=== PATIENT | male | born 1940 | race Caucasian/White ===

== ENCOUNTER 2016-07-14 07:22 | Day surgery (SDC) | payer MEDICARE, OTHER ==
--- NOTE | 2016-07-13 12:05 | PCM.ANEPRE ---
Anesthesia Pre-Op Review Additional Comments 75 M with multiple co-morbidities scheduled for laparoscopic PD catheter placement tomorrow with Dr. Sainz. Records reviewed and will be reviewed by the primary anesthesiologist who is doing the case tomorrow who will determine ultimate anesthetic plan. I have ordered a potassium to be done tomorrow (pre-op). No further recs at this time. Marcos Tang MD Jul 13, 2016 12:05
[2016-07-14] VITALS (8 sets, daily range): BP systolic 121–160; BP diastolic 59–77; PULSE 54–58; RESP 12–19; O2SAT 96–100
[~2016-07-14] VITALS: Ht 175.3 cm; Wt 90.1 kg
[~2016-07-14 07:22] MED LIST: AMIO200T PO; ASPI-973 PO; CALC0.257 PO; FURO80TA83 PO; HYDR-3940 PO; LIP40 PO; Lactated Ringer's 1,000 ML IV SCH; METO100T3 PO; SODI650T PO
[2016-07-14] MEDS ORDERED: Phenylephrine/NS-PF 100 mCg/mL 5 mL Syringe IVPUSH ONE (07:23)
[2016-07-14] MEDS ORDERED: Succinylcholine Chloride 20 mg/mL 5 mL Inj ONE (07:23)
[2016-07-14] MEDS ORDERED: Cisatracurium 2,000 mCg/mL 10 mL Inj ONE (07:23)
[2016-07-14] MEDS ORDERED: Ondansetron 2 mg/mL 2 mL Inj ONE (07:23)
[2016-07-14] MEDS ORDERED: Glycopyrrolate 0.2 mg/mL 5 mL Inj ONE (07:23)
[2016-07-14] MEDS ORDERED: Dexamethasone 4 mg/mL Inj ONE (07:23)
[2016-07-14] MEDS ORDERED: Neostigmine 1 mg/mL 5 mL Inj ONE (07:23)
[2016-07-14] MEDS ORDERED: EPHEDrine/NS 5 mg/mL 5 mL Syringe ONE (07:23)
[2016-07-14] MEDS ORDERED: Propofol 10,000 mCg/mL 20 mL Inj ONE (07:23)
[2016-07-14] MEDS ORDERED: fentaNYL-PF 50 mCg/mL 2 mL Inj ONE (07:23)
[2016-07-14] MEDS ORDERED: 0.9% Sodium Chloride 500 ML IV ONE (07:40)
--- NOTE | 2016-07-14 08:41 | PCM.HPANE ---
Patient Data Date of Service: Jul 14, 2016 Surgeon Admitting Provider: Attending Provider:Chava Sainz MD Primary Care Physician:Heidy Kamara Other Provider:Angely Jewell Anesthesia Reason for Visit End Stage Renal Disease Ht/WT & BMI Height (Feet): 5 Height (Inches): 9.00 Weight (Kilograms): 90.100 Body Mass Index 29.00 Allergies Coded Allergies: amlodipine (Unverified Allergy, Unknown, UNKNOWN, 11/10/15) codeine (Unverified Allergy, Unknown, unknown, 11/10/15) dronedarone (Unverified Adverse Reaction, Severe, 11/10/15) pt reports that he has never been as sick in his life, severe intolerance to medication hydrocodone bitartrate (Verified Adverse Reaction, Severe, Nausea, 11/10/15) oxycodone HCl (Verified Adverse Reaction, Severe, Nausea, 11/10/15) Past Anesthesia History Anesthesia History: Denies:: Abnormal Airway, Anesthesia Reactions, Difficult Intubation, Fam Anesthesia Reaction, Fam Malignant Hypertherm, Malignant Hyperthermia Diabetes History Hx Diabetes?: No MRSA MRSA: No Medications Blood Thinner: Aspirin Hypertension Medication: Yes Home Meds Incl Beta Nagi: Yes (Metoprolol 200mg ) Date Beta Nagi Taken: Jul 14, 2016 Time Beta Nagi Taken: 0630 Reported Medications Calcitriol (Rocaltrol)0.25 Mcg Capsule0.5 Mcg PO DAILY 07/13/16 Aspirin 81 Mg Mdgyvz69 Mg PO DAILY Ref 0 07/13/16 Amiodarone 200 Mg Pylgyj250 Mg PO DAILY Ref 0 06/08/16 Sodium Bicarbonate 650 Mg Hgsrrg879 Mg PO TID 10/10/15 Hydralazine 50 Mg Cfgxtd27 Mg PO TID Ref 0 10/10/15 Atorvastatin (Lipitor)40 Mg Lbkxtu25 Mg PO HS Ref 0 07/26/15 Metoprolol Tartrate 100 Mg Ilqwij417 Mg PO BIDWM 30 Days Ref 0 05/28/15 Furosemide (Lasix)80 Mg Lenxex67 Mg PO DAILY 30 Days Ref 0 make take 80 if needed 07/30/14 Discontinued Reported Medications Aspirin 325 Mg Dogona177.5 Mg PO DAILY #1 BOTTLE 06/05/16 History History of ENT Problems?: Yes HEENT History: Positive for:: Cataracts (recent cataract surgery(bilateral)) Sinus Problem (seasonal allergies, stuffy nose) Denies:: Abnormal Airway Difficult Intubation Dysphagia Hearing Problem TMJ Hx of Heart Problems?: Yes Cardiovascular History: Positive for:: Atrial Fibrillation Cardiac Surgery (bypass surgery) Chest Pain Congestive Heart Failure (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) Edema Hypertension Irregular Heartbeat (atrial fibrillation, ablation 2016) Rheumatic Fever Valvular Heart Disease (MILD TR) Denies:: AICD Abdominal Aortic Aneurism Heart Murmur Pacemaker Thrombophlebitis Hx of Respiratory Problem?: No Respiratory History: Positive for:: Asthma (as a child) Chest Surgery Dyspnea (related to heart failure) Pulmonary Embolism (hx of) Denies:: COPD Cough Emphysema Hemoptysis Oxygen Administration Pneumonia Tuberculosis Use of C-PAP Machine Hx Neurologic Problems?: No Neurological History: Denies:: Alzheimer's Disease CVA Dementia Dizziness Headaches Multiple Sclerosis Parkinson's Disease Seizures Hx of GI Problems?: No Gastrointestinal History: Denies:: Cirrhosis Diverticulitis Gastroesphageal Reflux Gastrointestinal Bleeding Heartburn Hepatitis Hiatal Hernia Rectal Bleeding Hx of Problems?: Yes Genitourinary History: Positive for:: HX of Hemodialysis (DIALYSIS ON WED, AND WED) Denies:: Kidney Stones Urinary Tract Infection HX of Peritoneal Dialysis: No Male Hx: Positive for:: Prostate Problems (radical prostatectomy) Testicular Surgery (vasectomy) Denies:: Scrotal Mass Skin History: Denies:: History Skin Disorders? (HX of melanoma removed on back ) Pressure Ulcers Hx Musculoskeletal Problems?: Yes Musculoskeletal History: Positive for:: Degenerative Joint Joint Replacement (partial right knee) Musculoskeletal Trauma (RIGHT KNEE INJURY) Denies:: Back Injury Systemic Lupus Hx of Psycho/Social Problems?: No Psycho Social History: Denies:: Anxiety Bipolar Disorder Hx Depression Suicide Attempt Hx Surgeries?: Yes (CABG, prostatectomy, partial knee) Hx Any Other Health Problems?: Yes Other History: Positive for:: Cancer (prostate) Hospitalization (for surgeries) Denies:: Endocrine Disease Thyroid Disease History Blood Transfusions: Positive for:: Accept Blood Products? Denies:: Blood Transfuse Reaction Blood Transfusions Hx Diabetes: No Hx Alcohol Use: Yes (on wednesday or wednesday cocktails)Hx Substance Use: Yes ( marijuana- ingested not smoked) Smoking Status: Never Smoker Have You Smoked inLast 12 mo: No Stop/Bang Treated for Sleep Apnea?: No Do You Have a CPAP Machine?: No S-Snoring: Do You Snore Loudly: No T-Tired: feel tired, fatigued: No O-Obsered: Observed not breath: No P-Blood Pressure: treated: Yes B- Body Mass Index > 35 kg/m2: No A- Age over 50: Yes N- Neck Large Circumference: No G- Gender Male: Yes CHANELLE Total Score: 3 CHANELLE Risk Assessment: High Risk, =/>3 Yes CHANELLE Category 2: Yes Risk Assessment Category Category 1A: Patient has history of documented sleep apnea, and HAS NOT received any narcotic, sedative or anesthesia administration during this stay. Category 1B: Patient has history of documented sleep apnea, and HAS received any narcotic , sedative or anesthesia administration during this stay Category 2: Patient has SUSPECTED Obstructive Sleep Apnea, and HAS received any narcotic , sedative or anesthesia administration during this stay. Category 3: Patient has SUSPECTED Obstructive Sleep Apnea and HAS NOT received narcotic, sedative or anesthesia administration during this stay. Category 4: Outpatient in Procedural Areas with known sleep apnea or who screen positive for High Risk via the STOP/BANG questionnaire. Exam Exam Vital Signs Vital Signs Date Time Temp Pulse Resp B/P Pulse Ox O2 Delivery O2 Flow Rate FiO2 07/14/16 07:39 36.4 58 19 160/77 97 Room Air General Appearance: Alert, Oriented X3, Cooperative, No Acute Distress HEENT/AIRWAY: MP 2, Other (good mandibular protrusion and FROM) Lungs: Clear to Auscultation, Normal Air Movement Heart: Exam Unremarkable, Regular Rate/Rhythm, No Murmurs/Rubs/Gallops Meds/Labs/Diagnostics Admission Meds Current Medications Sodium Chloride (Normal Saline) 500 ml @ ud STK-MED ONCE IV Last administered on 07/14/16t 07:40; Start 07/14/16 at 07:40; Stop 07/14/16 at 07:41; Status DC Plan Impression Patient chart reviewed, patient interviewed and anesthestic plan with risks, benefits, and alternatives discussed, and informed consent obtained. NPO Status: 07/13 at 1900 ASA Physical Status: ASA4 Life Threatening (ESRD) Anesthetic Plan: GA Bene/Risks/Altern/Consents: Yes HP Complete Prior to Induction: Yes Yair Jones MD Jul 14, 2016 08:41
[2016-07-14] MEDS: CeFAZolin 2 Gm/50 mL D5W IV Premix IV ONE ×2 (09:14→09:40)
[2016-07-14] MEDS ORDERED: Bupivacaine-MPF 0.5% 30 mL Inj INFILTRATE ONE (09:19)
[2016-07-14] MEDS ORDERED: Ondansetron 2 mg/mL 2 mL Inj IVPUSH PRN (10:00)
[2016-07-14] MEDS ORDERED: hydrALAZINE 20 mg/mL Inj IVPUSH PRN (10:00)
[2016-07-14] MEDS ORDERED: Labetalol 5 mg/mL 4 mL Inj IV PRN (10:00)
[2016-07-14] MEDS ORDERED: 0.9% Sodium Chloride 250 ML IV PRN (10:00)
[2016-07-14] MEDS ORDERED: fentaNYL-PF 50 mCg/mL 2 mL Inj IVPUSH PRN (10:00)
[2016-07-14] MEDS ORDERED: HYDROmorphone 1 mg/mL Inj IVPUSH PRN (10:00)
[2016-07-14] MEDS ORDERED: Atropine 0.4 mg/mL Inj IVPUSH PRN (10:00)
[2016-07-14] MEDS ORDERED: EPHEDrine Sulfate 50 mg/mL Inj IVPUSH PRN (10:00)
[2016-07-14] MEDS ORDERED: Dexamethasone 4 mg/mL Inj IVPUSH PRN (10:00)
[2016-07-14] MEDS ORDERED: Phenylephrine 10,000 mCg/mL Inj IVPUSH PRN (10:00)
[2016-07-14] MEDS ORDERED: Lactated Ringer's 1,000 ML IV SCH (10:00)
[2016-07-14] MEDS ORDERED: HepLOK Flush 100 unit/mL 5 mL Inj IVFLUSH ONE (10:21)
[2016-07-14] MEDS ORDERED: HYDROcodone-APAP 5-325 mg Tablet PO PRN (10:30)
--- NOTE | 2016-07-14 10:47 | PCM.ANEP1 ---
Post Anesthesia Phase 1 PACU Phase 1 Assessment Date of Service: Jul 14, 2016 Vital Signs Vital Signs Date Time Temp Pulse Resp B/P Pulse Ox O2 Delivery O2 Flow Rate FiO2 07/14/16 07:39 36.4 58 19 160/77 97 Room Air 1043 temp 36.5 C HR 53 BP 131/59 RR 11 97% on RA Anesthetic Administered: GA Level of Alertness: Awake, talking RODRIGUEZ's with Equal Strength: Yes Pain: No Nausea or Vomiting: No Oxygen Delivery: Room Air Lungs: Clear to Auscultation, Normal Air Movement Dermatome Level: Full Sensation Yair Jones MD Jul 14, 2016 10:47
--- NOTE | 2016-07-14 10:52 | OP ---
[address] [address] OPERATIVE REPORT PATIENT: GOSIA DEJESUS : 1940 MR#: [id number] ADMIT: 07/14/2016 JOB ID: [id number] DATE OF SURGERY: 07/14/2016 PREOPERATIVE DIAGNOSIS(ES): End-stage renal failure. POSTOPERATIVE DIAGNOSIS(ES): End-stage renal failure. PROCEDURE: 1. Diagnostic laparoscopy. 2. Laparoscopic placement of peritoneal dialysis catheter. SURGEON: Chava Sainz MD PRODUCT SUPPORT TECHNICIAN: Bert Ward PA-C INDICATIONS: The patient is a 75-year-old man, who is currently on hemodialysis. He had a functioning fistula but developed right-sided heart failure, leading to ligation of the fistula and now dependency on a tunneled catheter for hemodialysis. He has had a previous prostatectomy but no intra-abdominal operations. After discussing options with the patient, it was elected to proceed with placement of a peritoneal dialysis catheter. FINDINGS: He had small bilateral inguinal hernias. The internal defects were clearly visible, but there was no inguinal bulge identified. He had no intra-abdominal adhesions or other pathology that would have prevented placement of the peritoneal dialysis catheter. After placement of the catheter, there was excellent inflow and no resistance outflow through the catheter. DESCRIPTION OF PROCEDURE: At the beginning and end of the operation, SCOAP checklist was completed. A general endotracheal anesthetic was induced. Using ChloraPrep, he was prepped and draped in the usual fashion. He received local anesthesia with 0.5% plain bupivacaine. A left subcostal incision was made. Using a Veress needle, pneumoperitoneum was safely established, and then a 5 mm port was positioned using an optical port. An additional 5 mm port was placed in the left lower quadrant under direct visualization. The position of the internal and external cuffs and external exit site were marked after being determined by appropriate placement of the right-sided curl cath on his abdominal wall. The right upper quadrant incision was made. A small incision was made in the anterior rectus fascia. An 8 mm trocar was then positioned into the abdominal cavity, entering at the precise location for the internal cuff. The right-sided curl cath was then positioned intra-abdominally, again with the internal cuff just outside of the peritoneal cavity. It was then tunneled to its predetermined right upper quadrant exit site. Using normal saline, there was no resistance to inflow or outflow, and the catheter was flushed with heparinized saline, with the appropriate attachments completed. The abdomen was then reinflated, the laparoscope introduced. There was no residual fluid to be aspirated. The abdomen was then deflated and trocars removed without evidence of bleeding. Those incisions were closed with 4-0 Vicryl. The right upper quadrant incision was closed with 4-0 Vicryl. Steri-Strips and sterile Band-Aids were applied. Estimated blood loss less than 10 cc. There are no apparent complications. The final sponge, needle, and instrument counts were announced as correct, and the patient was returned to the recovery room in stable condition. Critical Assistance provided by ROGERIO Winchester. AG
--- NOTE | 2016-07-14 12:25 | PCM.ANEP2 ---
Post Anesthesia Evaluation ASA/CMS Post Anesthesia Date of Service: Jul 14, 2016 VS in Patient's Normal Range?: Yes Resp Stable; Airway Patent?: Yes CV Function & Hydration Stable: Yes Mental Status Recovered?: Yes Pain control Satisfactory?: Yes N/V Control Satisfactory?: Yes Yair Jones MD Jul 14, 2016 12:25
== END 2016-07-14 23:59 | disposition home or self-care (01) ==
LOC: SAS 07:22
PROVIDERS: ATTEND Surgery
DX: N18.6 End stage renal disease (principal); I12.0 Hypertensive chronic kidney disease with stage 5 chronic kidney disease or end stage renal disease; I48.91 Unspecified atrial fibrillation; I50.9 Heart failure, unspecified; I25.10 Atherosclerotic heart disease of native coronary artery without angina pectoris; Z95.1 Presence of aortocoronary bypass graft
CPT/HCPCS: 49324; 84132; J0330; J0690; J1100; J1642; J2370; J2405; J2710; J7030

== ENCOUNTER 2016-08-26 07:18 | Inpatient (IN) | payer MEDICARE, OTHER ==
[2016-08-26] VITALS (14 sets, daily range): BP systolic 139–187; BP diastolic 65–88; PULSE 60–81; RESP 12–19; O2SAT 95–98
[~2016-08-26] VITALS: Ht 175.3 cm; Wt 94.8 kg
[~2016-08-26 07:18] MED LIST changes: -Lactated Ringer's 1,000 ML IV SCH
--- NOTE | 2016-08-26 07:25 | ED.REPORT ---
HPI-Chest Pain 40 and Over Date of Service Aug 26, 2016 ED Provider: Areli Zapata MD Patient is a 75 year old male with a hx of CABG, HTN, cardiac stent, prostate cancer, chronic renal failure and peritoneal dialysis (Federico, Arturo, Karlo) who presents to the ED via EMS due to chest pain specified as substernal heaviness radiating into both arms and left jaw beginning at 0030 this morning. Pt confirms that he has had increasing intermittent chest pain that goes away, in 15 minute episodes for the last 2 weeks. This morning it was significantly worse. When he relaxes, the pain slightly dissipates. The pain is worse with exertion and he associates moderate SOB. Pt has a hx of 3-way bypass after a stent last year. Nursing Notes Stated Complaint: CHEST PAIN Chief Complaint: Chest Pain Nursing Notes Reviewed: Yes Allergies: Coded Allergies: amlodipine (Unverified Allergy, Unknown, UNKNOWN, 11/10/15) codeine (Unverified Allergy, Unknown, unknown, 11/10/15) dronedarone (Unverified Adverse Reaction, Severe, 11/10/15) pt reports that he has never been as sick in his life, severe intolerance to medication hydrocodone bitartrate (Verified Adverse Reaction, Severe, Nausea, 11/10/15) oxycodone HCl (Verified Adverse Reaction, Severe, Nausea, 11/10/15) Scheduled Aspirin (Aspirin) 81 Mg Tablet 162 MG PO DAILY Atorvastatin (Lipitor) 40 Mg Tablet 40 MG PO HS Calcium Carbonate (Tums) 500 Mg Tab.chew 500 MG PO MORNING Calcium Carbonate (Tums) 500 Mg Tab.chew 1,000 MG PO BID Furosemide (Lasix) 80 Mg Tablet 80 MG PO DAILY make take 80 if needed Hydralazine (Hydralazine) 50 Mg Tablet 75 MG PO BID Metoprolol Tartrate (Metoprolol Tartrate) 100 Mg Tablet 200 MG PO BIDWM Scheduled PRN Allopurinol (Allopurinol) 100 Mg Tablet 100 MG PO PRN For Pain General Time Seen by MD: 07:23 Chief Complaint Chest pain Hx Obtained From: Patient Arrived By: Walk-in Sudden in Onset?: Yes Onset Occurred: 1 - 4 hours ago Symptom Duration: Since onset Location: : Chest left: Substernal Quality: Heaviness Radiation: : Arm left: Arm right: Jaw Severity: Current: Mild Recent Healthcare: Recent doctor visit, Recent hospitalization, Previous surgery Similar Sx Previous: Yes Past Medical History Past Medical History chronic renal failure valvular heart disease rhematic fever High flow fistula with pulmonary hypertension, requiring revision Reports: Congestive heart failure, Coronary artery disease, Hyperlipidemia, Hypertension Reports: Atrial fibrillation Past Surgical History heart cath- stent 2009 Fistula and revision right arm Reports: CABG, Prostatectomy Smoking History Never Smoker Social History Alcohol Use: "Social" Other Social History: , Local resident Ambulatory Status Independent Review of Systems Respiratory: Reports: Shortness of breath Cardiovascular: Reports: Chest pain Complete sys rev & neg: except as marked. Physical Exam Initial Vital Signs Vital Signs (First) Date Time Temp Pulse Resp B/P Pulse Ox O2 Delivery O2 Flow Rate FiO2 08/26/16 07:23 37.3 70 18 187/75 95 Room Air 08/26/16 08:49 3 Initial VS: Reviewed Head / Eyes: Atraumatic, Normocephalic, PERRL ENT: Mucous membranes moist, Conjunctiva normal, No scleral icterus Neck: Supple, Non-tender, Full range of motion Extremities: Vascular intact, Neuro intact, No swelling, No tenderness Skin: Warm, Dry, No cyanosis Neurologic: Alert, Oriented, Nonfocal Psychiatric: Mood/affect normal, Behavior normal, Normal thought content General/Constitutional: Awake, Alert, Cooperative Respiratory / Chest: Atraumatic, Breath sounds NL, Breath sounds = bilat, No respiratory distress, No rales, No rhonchi, No wheezing, No retractions Cardiovascular: No gallop, No murmurs, No rubs Abdomen: Atraumatic, Soft, Non-tender, No guarding, No rebound, BS normoactive Interpretation & Diagnostics Lab Results Interpretation Result Diagram: 08/26/16 0815 08/26/16 0815 Test 08/26/16 08:15 White Blood Count 9.7th/mm3 (3.8-10.1) Red Blood Count 3.61mil/mm3 (4.40-5.80) Hemoglobin 11.4g/dL (13.8-17.2) Hematocrit 35.7% (41.0-50.0) Mean Corpuscular Volume 98.9fL (81-100) Mean Corpuscular Hemoglobin 31.6pg (27.0-35.0) Mean Corpuscular Hemoglobin Concent 31.9% (32.0-37.0) Red Cell Distribution Width 13.9% (12.3-15.4) Platelet Count 181bil/L (150-400) Neutrophils (%) (Auto) 84.7% (40-74) Lymphocytes (%) (Auto) 7.0% (14-46) Monocytes (%) (Auto) 6.9% (4-12) Eosinophils (%) (Auto) 0.9% (0-5) Basophils (%) (Auto) 0.2% (0-3) Sodium Level 139mEq/L (134-144) Potassium Level 3.6mEq/L (3.5-5.2) Chloride Level 99mEq/L (97-108) Carbon Dioxide Level 26mmol/L (18-29) Blood Urea Nitrogen 34mg/dL (8-27) Creatinine 3.86mg/dL (0.76-1.27) Estimat Glomerular Filtration Rate 16mL/min (>59) Glucose Level 98mg/dL (60-99) Calcium Level 9.0mg/dL (8.5-10.1) Magnesium Level 1.8mg/dL (1.6-2.6) Total Bilirubin 0.9mg/dL (0.0-1.2) Aspartate Amino Transf (AST/SGOT) 78U/L (0-50) Alanine Aminotransferase (ALT/SGPT) 94U/L (0-44) Alkaline Phosphatase 163U/L (25-160) Total Creatine Kinase 64U/L (21-232) Creatine Kinase MB 1.9ng/mL (0.0-10.4) Creatine Kinase MB % % (0.0-5.0) Troponin T 0.014ug/L (0.0-0.011) Pro-B-Type Natriuretic Peptide 12929cy/mL (0-376) Total Protein 6.6g/dL (6.4-8.4) Albumin 3.6g/dL (3.4-5.0) Thyroid Stimulating Hormone (TSH) 2.470uIU/mL (0.450-4.500) Hold Gant Top Tube Received (Received) ECG Interpretation Time: 07:32 Interpreted by: ED physician Normal ECG Interpretation: Normal sinus rhythm (68), No acute ischemic changes ECG Interpretation: with chest pain slight ST depression in V3, V4, V5 slightly worse then 0730 Time: 08:11 Interpreted by: ED physician Normal ECG Interpretation: Normal sinus rhythm (67) Repeat ECG: Repeat ECG ch from prior X-Ray Chest Interpretation Chest Xray Interpretation: IMPRESSION: Mild pulmonary edema suggesting fluid overload. Correlate clinically. Dictated by: Jose Alfredo Mohr RRA Interpreted: Jasvir Hartley MD on 08/26/2016 at 10:14 Transcribed by: JORDY on 08/26/2016 at 10:15 View: Portable Interpretation / Wet Read by: Interpret - Radiologist Re-Eval/Medical Decision Med Decision/Clinical Course Acute coronary syndrome with continued pain. Cardiology consult continue with heparin and nitroglycerin beta daily Plavix and statin. 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 Follow-up; But did show acute findings and 2 stents were deployed. patient stable after procedure Time of Eval: 08:07 Patient Status: Condition unchanged Re-Evaluation/Progress Note: Pt rechecked. Still having chest pain and SOB. Nitro and heperin drip started. Time of Eval: 08:39 Patient Status: Condition unchanged, Mild relief Re-Evaluation/Progress Note: Pt rechecked. Pt describes that nitro did not make much of a difference, but he has a slight decrease in pain. The nurse reports that when she took him to use the restroom, the pt was very SOB. Time of Eval: 10:17 Re-Evaluation/Progress Note: Critical Care. Consultation #1: Referral / Consult Name: Alfie Ta MD Consulted With: Hospitalist Call Returned at: 09:02 Pear Picker: Will see patient, Agrees with eval, Agrees with plan Note: Dr. Ta will see patient and talk with interventional therapist. Agrees with nitro and heperin drip. Consultation #2: Referral / Consult Name: Paul Nevarez MD Consulted With: Hospitalist Call Returned at: 10:20 Pear Picker: Accepts admit Note: Dr. Nevarez will admit in ICU and coordinate with nephrology. Counseled Regarding: Diagnosis, Lab results, Need for admission Discharge & Departure Disposition: ADMITTED TO HOSPITAL Discharge Condition All VS Reviewed: Yes Condition: Critical Referrals: Heidy Kamara PAC (PCP) Crit Care Except Billable Proc Time Spent: 30-74 minutes Services Performed: Patient management by me, Time spent at bedside, Reviewing test results, Reviewing imaging, Discussing patient care, Documentation in record, Time with fam/surrogate Scribe Attestation Portion of this note were transcribed by Aditya Mcrae. I, Dr. Zapata, personally performed the history, physical exam, and medical decision-making: I reviewed and confirmed the accuracy for the information in the transcribed note. Signed by: danielito Fox, 08/26/16 1000 copies to: Heidy Kamara PAC; Alvarado Groves MD, Shawna L MD Aug 26, 2016 07:25 ADITYA MCRAE Aug 26, 2016 07:39
[2016-08-26] MEDS ORDERED: Nitroglycerin 50 mg/250 mL D5W 50,000 MCG in IV Premix 1 EACH IV ONE (08:04)
[2016-08-26] MEDS ORDERED: Heparin 25K Unit/500mL 0.45 NS 25,000 UNIT in IV Premix 1 EACH IV ONE (08:05)
[2016-08-26] MEDS ORDERED: Heparin 5,000 Unit/mL Inj IVPUSH ONE (08:05)
[2016-08-26 08:24] LABS: BASOPHILS % (AUTO) 0.2 % (0-3); EOSINOPHILS % (AUTO) 0.9 % (0-5); MONOCYTES % (AUTO) 6.9 % (4-12); Mean Corpuscular Hemoglobin 31.6 pg (27.0-35.0); Mean Corpuscular Volume 98.9 fL (81-100); NEUTROPHILS % (AUTO) 84.7 % (40-74); Platelet Count 181 bil/L (150-400)
[2016-08-26 09:05] LABS: TROPONIN T 0.014 ug/L (0.0-0.011)
[2016-08-26 09:16] LABS: Magnesium 1.8 mg/dL (1.6-2.6)
[2016-08-26] MEDS ORDERED: HYDR-3940 PO (09:32)
[2016-08-26] MEDS ORDERED: ASPI-973 PO (09:33)
[2016-08-26] MEDS ORDERED: MeTOProlol 1 mg/mL 5 mL Inj IVPUSH ONE (09:55)
[2016-08-26] MEDS ORDERED: CALC500T9 PO ×2 (10:02→10:03)
[2016-08-26] MEDS ORDERED: 0.9% Sodium Chloride 1,000 ML IV SCH (10:12)
[2016-08-26] MEDS ORDERED: ZYL100 PO (10:12)
[2016-08-26] MEDS ORDERED: Ondansetron 2 mg/mL 2 mL Inj IVPUSH PRN ×2 (10:15→15:30)
[2016-08-26] MEDS ORDERED: Senna-Docusate 8.6-50 mg Tablet PO PRN (10:15)
[2016-08-26] MEDS ORDERED: Polyethylene Glycol (PEG) 17 Gm Powder PO PRN (10:15)
[2016-08-26] MEDS ORDERED: Alum-Mag Hydrox-Simeth 30 mL Suspension PO PRN (10:15)
--- NOTE | 2016-08-26 10:15 | DRSVH ---
PROCEDURE: X-RAY CHEST ONE VIEW, PORTABLE ([id number]) INDICATIONS: CHEST PAIN TECHNIQUE: One view of the chest was acquired. COMPARISON: [facility], CR, XR CHEST 2VW, 06/09/2016, 10:15. FINDINGS: Surgical changes and devices: Post median sternotomy. Stable position right IJ double lumen dialysis catheter. Lungs and pleura: No pleural effusions or pneumothorax. Lungs are clear, and mild edema is present. Mediastinum: Mediastinal contours appear normal. Heart size is normal. Bones and chest wall: No suspicious bony lesions. Overlying soft tissues appear unremarkable. IMPRESSION: Mild pulmonary edema suggesting fluid overload. Correlate clinically. Dictated by: Jose Alfredo Mohr RR Interpreted: Jasvir Hartley MD on 08/26/2016 at 10:14 Transcribed by: JORDY on 08/26/2016 at 10:15 Approved by: Jasvir Hartley M.D. on 08/26/2016 at 17:46
[2016-08-26 11:17] LABS: Creatine Kinase 64 U/L (21-232)
--- NOTE | 2016-08-26 11:35 | CONS ---
[address] [address] CONSULTATION REPORT PATIENT: GOSIA DEJESUS : 1940 MR#: [id number] ADMIT: 08/26/2016 JOB ID: [id number] DATE OF SERVICE: 08/26/2016 REASON FOR CONSULT: ER physician, Dr. Areli Zapata, asked me to see this patient regarding persistent chest pain. CHIEF COMPLAINT: Intermittent chest pain for last 2 weeks. PRESENT HISTORY: This is a 75-year-old, pleasant male who has a history of acute coronary syndrome in January 2009. At that time, he had proximal to mid RCA/PCI stenting followed by recurrence of unstable angina, status post 3-vessel bypass surgery in May [address] Hernández (ZAPATA graft to 1st diagonal branch, SVG graft to OM and radial graft to PDA, LV ejection fraction 55% to 60% with moderate MR, moderate TR, and pulmonary artery systolic pressure about 54 mmHg plus estimated CVP based on echocardiogram done in February 2016, end-stage renal disease on peritoneal dialysis from last 2 weeks, was on hemodialysis, which was discontinued due to high output cardiac failure due to right arm AV fistula, essential hypertension, hyperlipidemia. Got admitted to the emergency room because of above-mentioned chief complaint. According to the patient, for 2 weeks he has been having off and on chest pain which used to last 10-15 minutes and used to subside by itself, sometimes during exertion sometimes at rest. It was a pressure-type discomfort around the left side of the chest. No nausea, vomiting, sweating. At that time it was not intense. However this morning he woke up. He was having chest pain. It went to his both arms as well as left jaw. On a scale of 1-10, it became 6 or 7 in intensity. She did not have any nausea, vomiting, but had some shortness of breath. He took nitroglycerin which did not help. As chest pain, lasted more than 20 minutes he decided to call EMS. According to him, he was given nitroglycerin by EMS. They brought him to the ER. He was still having chest pain. The patient received morphine and started on nitroglycerin. His chest pain got better, but still he is complaining of some discomfort around the left breast as well as around upper abdomen. He denies any nausea, vomiting, sweating. Denies any stroke-like symptoms. Denies any fever, cough, and expectoration. No active bleeding. Abdominal pain is not radiating. He has 3-4 liquid stool yesterday. Denies any food from outside. He is getting peritoneal dialysis from 2 weeks. He is compliant with his medications. The patient also has history of paroxysmal AFib for which he underwent ablation in February 26, 2016. He was on amiodarone for a couple of months, but recently was seen by Dr. Cunningham and it was discontinued. Patient chose not to be on anticoagulation, however he was taking aspirin. PAST MEDICAL HISTORY: 1. CAD status post acute coronary syndrome in January 2009 with PCI of the RCA including proximal and mid portion, followed by a 3-vessel bypass surgery in May 2019 with ZAPATA graft to diagonal, SVG graft to OM, and radial graft to PDA. 2. Paroxysmal AFib status post AFib ablation in February 26, 2016, by Dr. Cunnnigham, discontinuation of amiodarone in August 2016. The patient does not to be on anticoagulation. 3. End-stage renal disease. 4. History of high output cardiac failure hence right arm AV fistula was taken out. 5. History of rheumatic fever, preserved LV function, moderate MR, moderate TR based on echocardiogram in February 2016 with pulmonary artery systolic pressure about 54 mmHg plus estimated CVP. PAST SURGICAL HISTORY: As stated above. ALLERGIES: According to the patient, allergy history is allergic to: 1. AMLODIPINE. 2. CODEINE. 3. DRONEDARONE. 4. HYDROCODONE. 5. OXYCODONE. MEDICATIONS: At home: He is not taking amiodarone. 1. Aspirin 81 mg daily. 2. Atorvastatin 40 mg daily. 3. Lasix 80 mg daily. 4. Hydralazine 50 mg tablet 75 mg 3 times a day. 5. Metoprolol tartrate 100 mg 2 times a day. 6. Sodium bicarbonate 650 mg 3 times a day. 7. Rocaltrol 0.25 mcg capsule total 0.5 mcg p.o. daily. SOCIAL HISTORY: Denies any tobacco abuse, alcohol abuse. FAMILY HISTORY: Positive for coronary artery disease. REVIEW OF SYSTEMS: A 10-point review of systems were obtained and negative except as stated above. PHYSICAL EXAMINATION: Blood pressure 160/65, heart rate 67, respiratory rate 19, oxygen saturation 3 L 98%. HEENT no significant jaundice. Neck: No apparent JVP or carotid bruit. Chest: No obvious crepitation or rhonchi. CVS: S1, S2 normal. No S3, no S4. Soft ejection systolic murmur at the base. Abdomen: patient has peritoneal dialysis catheter, which does not appear to be infected, no obvious hepatosplenomegaly. At present no rebound tenderness. No pulsatile mass felt. Extremities: No significant pedal edema. Vascular: No evidence of critical limb ischemia. DIRECTOR OF ONLINE MERCHANDISING: Alert, oriented to time, place, and person. No obvious motor or sensory deficit. LABORATORIES: WBC 9.7, hemoglobin 11.4, platelets 181, polymorphs 84.7. His CMP pending. INR 1.35. EKG at 8:11 this morning reveals sinus rhythm. The patient has some minimal less than [address]-depression in V3 to V6 and some flattening in the inferior leads. Some repolarization changes. QTc 503 msec, which I do not think is right. Left atrium enlargement. X-ray chest appears to be have some mild cardiomegaly. Right subclavian catheter seen. No obvious significant congestive heart failure. Prominent bronchovascular markings. ASSESSMENT AND PLAN: Recurrent chest pain from last 2 weeks consistent with unstable angina. The patient has known history of coronary artery disease since 2008. He had acute coronary syndrome in January 2009 which required intervention of right coronary artery followed by recurrence of acute coronary syndrome and unstable angina and required 3-vessel bypass surgery in May 2009 with left internal mammary artery graft to diagonal 1, saphenous vein graft to obtuse marginal and radial graft to posterior diagonal artery with end-stage renal disease on peritoneal dialysis, history of atrial fibrillation status post ablation in February 2016, who chose not to be on anticoagulation, essential hypertension, hyperlipidemia, et cetera. Patient's grafts are more than 5 years old. His story is compelling. Discussed with the patient different cardiac workup and treatment strategies including need for left heart catheterization in anticipation of revascularization. The patient is also thinking that most likely he has his arteries clogged up. His preference to undergo left heart catheterization. Benefits and risks, which include, but not limited to, risk of bleeding, groin complication, myocardial infarction, stroke, coma, , renal insufficiency, peripheral vascular complication, et cetera and details discussed with the patient. He verbalizes understanding. All the questions were answered. Meanwhile, will treat him as per unstable angina and probably acute coronary syndrome protocol. He will need dual anti-platelet therapy. We will continue heparin, nitroglycerin drip, as well as we will give him a beta daily, high intensity statin. We will get echocardiogram. Further plan will be based on the result of above-mentioned diagnostic tests and his hospital course. I discussed the plan with his application developer manager, as well. . Thanks for the cardiology consult. Total time spent today about 70 minutes at least. AG
[2016-08-26] MEDS ORDERED: fentaNYL-PF 50 mCg/mL 2 mL Inj ONE ×2 (12:46→13:26)
[2016-08-26] MEDS ORDERED: Heparin 5,000 Units/500 mL NS Premix IV ONE (12:46)
[2016-08-26] MEDS ORDERED: 0.9% Sodium Chloride 1,000 ML ONE ×2 (12:46→12:48)
[2016-08-26] MEDS ORDERED: Heparin 1,000 Units/500 mL NS Premix IV ONE (12:46)
[2016-08-26] MEDS ORDERED: Heparin 1,000 Unit/mL 10 mL Inj ONE (12:47)
[2016-08-26] MEDS ORDERED: hydrALAZINE 20 mg/mL Inj ONE (12:48)
[2016-08-26] MEDS ORDERED: Nitroglycerin 50,000 mcg/250 mL D5W Premix IV ONE (12:48)
[2016-08-26 13:00] LABS: APPEARANCE,URINE HAZY (CLEAR,HAZY); COLOR,URINE STRAW (YELLOW); OCCULT BLOOD,URINE TRACE (NEGATIVE); PH,URINE 7.5 (5.0-8.0); UROBILINOGEN,URINE NORMAL (NORMAL)
--- NOTE | 2016-08-26 14:51 | DI95 ---
[address] [address] INTERVENTIONAL CARDIAC CATHETERIZATION PATIENT: GOSIA DEJESUS : 1940 MR#: [id number] ADMIT: 08/26/2016 JOB ID: [id number] DATE: 08/26/2016 PATIENT PROFILE: The patient is a 75-year-old male with history of end-stage renal failure on hemodialysis. He underwent coronary artery bypass surgery in May of 2009. He presented with acute coronary syndrome. PROCEDURE: 1. Orbital atherectomy to the proximal and mid left anterior descending. 2. Balloon angioplasty and stenting to the proximal and mid left anterior descending. VASCULAR CLOSURE DEVICE: Perclose. COMPLICATIONS: None. METHOD: Following diagnostic coronary angiogram performed by Dr. Ta, heparin 100 units/kg were given. The femoral sheath was up sized to a 25 cm 7-Qatari sheath. A 7-Qatari CLS 4 guide was advanced to the left coronary ostium. A Run-through wire together with a Finecross catheter was put inside the left anterior descending artery. It was then exchanged to a Viper wire. A CSI coronary device was then used for orbital atherectomy in the proximal and mid left anterior descending artery. Multiple passes were performed in the low speed. The patient complains of shortness of breath during this time. There was no ST-segment change. After the CSI device was removed, the lesion was pre-dilated with a 2.0, 2.5 and 3.0 mm balloons. A Xience 2.5 x 18 mm stent was placed inside the mid left anterior descending artery lesion and deployed at 22 atmospheres for 20 seconds. Another Xience 2.5 x 18 mm stent was placed proximal to the first stent and deployed at 24 atmospheres for 20 seconds. A 2.75 x 15 mm balloon was used for post stent deployment dilation. It was inflated up to 22 atmospheres. Final angiogram was obtained. Following sheath removal, hemostasis was achieved by using Perclose device. The patient tolerated the procedure well. He was transferred to [facility] in good condition. TOTAL CONTRAST USED: 280 cc. FLUOROSCOPY TIME: 29 minutes. TOTAL RADIATION DOSE: 2555 mGy. RESULTS: Successful orbital atherectomy, balloon angioplasty, and stenting to the tight and heavily calcified proximal and mid left anterior descending artery lesion by deploying two drug-eluting stents to achieve an excellent angiographic result with KAREN-3 flow distally. Note: Please use modifier code 22 due to complex and prolong procedure. MTDD
--- NOTE | 2016-08-26 15:00 | NUR ---
Dialysis note: PD manual exchange x 1 using 1.5% solution for 4 hours dwell. PD catheter exit site dsg changed, no s/s of infection noted. PD effluent clear, no fibrin, no sediments noted. Report given to Aurelia Carr RN.
[2016-08-26] MEDS ORDERED: 0.9% Sodium Chloride 400 ML (4 HRS) IV ONE (15:30)
[2016-08-26] MEDS ORDERED: Sodium Chloride LOK Flush 10 mL Syringe IVFLUSH PRN (15:30)
[2016-08-26] MEDS ORDERED: Atropine 1 mg/10 mL (Code) Syringe IVPUSH PRN (15:30)
[2016-08-26] MEDS ORDERED: 0.9% Sodium Chloride 250 ML BOLUS IV PRN (15:30)
--- NOTE | 2016-08-26 16:00 | NUR ---
FABY FROM NURSE INFECTION CONTROL Patient arrived at 1445 from cath lab radiology technician. Patient awake alert and oriented x 3 . Vital signs stable. Continued with current nitroglycerine gtt. Patient reports he is pain free. Groin site stable. Patient has developed a small hematoma that has remained stable. Patient reminded to decrease his activity and stay flat.Patient able to use urinal but is also incontinent. Call placed to significant other Ariella and assisted patient to answer phone so he could speak with her. Plan to continue to monitor groin site. Addendum: 08/26/16 at 1831 by OBIE BLANTON RN Hematoma Patient developed small hematoma. Site outlined pressure applied and hematoma expressed for 20 minutes. Weight applied no further bleeding . Site soft. Vital signs stable.
[2016-08-26] MEDS: Sodium Chloride LOK Flush 10 mL Syringe IVFLUSH SCH (16:30)
[2016-08-26 17:25] LABS: Creatine Kinase 46 U/L (21-232)
--- NOTE | 2016-08-26 18:18 | CONS ---
[address] [address] CONSULTATION REPORT PATIENT: GOSIA DEJESUS : 1940 MR#: [id number] ADMIT: 08/26/2016 JOB ID: [id number] requesting physician DATE OF SERVICE: 08/26/2016 NEUROLOGY CONSULTATION: REASON FOR CONSULTATION: Management of end-stage renal disease. COMPLAINT: Chest pain. HISTORY OF PRESENT ILLNESS: This is a 75-year-old male with significant past medical history of coronary artery disease status post CABG and stent placement in 2008, rheumatic heart disease complicated by mitral regurgitation and tricuspid regurgitation, atrial fibrillation status post ablation, hypertension, end-stage renal disease on peritoneal dialysis, who presented to the hospital due to intermittent chest pain over the past couple of weeks. Renal was consulted to continue dialysis while he is hospitalized. His primary sample washer is Dr. Marcelo. The patient was started on hemodialysis initially. The patient had a right AV fistula placement in Apr 2016. Subsequently he developed high-output heart failure after the fistula placement. Later on, the fistula was ligated. The patient had a right tunneled catheter placement on June 08, 2016. He started on hemodialysis at that time. The patient had peritoneal dialysis catheter placement on July 14, 2016. The patient has had two weeks on a continuous ambulatory peritoneal dialysis. He performs peritoneal dialysis manually. Prescription includes 1.5% dextrose, dialysate, 2 L, four cycles, dwell time 4 hours. He stated that his is not able to tolerate the noise of the cycler, hence he has to perform a peritoneal dialysis manually. The patient came to the hospital at this time with a complaint of intermittent chest pain. The pains are located at the right-sided chest, pressure-like in nature. The patient has no palpitation, no nausea or vomiting. The symptoms have been ongoing off and on over the past two weeks. This morning the pain was quite intense. He then decided to call the EMS. The patient received nitroglycerin and IV morphine. The patient was on a nitroglycerin drip as well. His initial blood pressure was 187/75. He received IV hydralazine for the blood pressure as well as IV metoprolol. The patient was already evaluated by a marine fire fighter. The plan is to proceed with left heart catheterization. His initial blood work showed a sodium of 139, potassium 3.6, chloride 99, bicarb 26, BUN 34, creatinine 3.86. The patient makes some urine. He is aware that the procedure, for which he will be given IV contrast, can drop his residual kidney function. However, he would like to proceed with the left heart catheterization. PAST MEDICAL HISTORY: 1. End-stage renal disease, currently on peritoneal dialysis manually. 2. Status post AV fistula creation complicated by high-output heart failure, status post ligation. 3. Atrial fibrillation status post ablation in February 2016. 4. Coronary artery disease status post CABG x3, PCI in 2016. 5. Hypertension. 6. Prostate cancer, status post prostatectomy. 7. Rheumatic fever, complicated by moderate mitral regurgitation and tricuspid regurgitation. ALLERGIES: AMLODIPINE, CODEINE, HYDROCODONE, OXYCODONE, DRONEDARONE. SOCIAL HISTORY: Denies current use of alcohol, tobacco, or illicit drugs. FAMILY HISTORY: No kidney disease in the family. REVIEW OF SYSTEMS: Constitutional: No fever, no chills. HEENT: No headaches. No blurred vision. Cardiovascular: As per HPI. Pulmonary: No cough. No hemoptysis. GI: No nausea, vomiting. : Good urine output. No dysuria. No hematuria. Skin: No rashes. No excoriation. Endocrine: No history of diabetes. No hypothyroid. No polyuria or polydipsia. Neuro: No neurological deficits. Hematology: No active bleeding. No bruises. PHYSICAL EXAMINATION: Vitals: Temperature 37.3, pulse 81, respiratory rate 17, blood pressure 178/71, pulse ox 97 with nasal cannula 3 L. General appearance: Awake, alert, oriented x3. In no acute distress. HEENT: Atraumatic. Moist mucous membranes. No pallor. No icteric sclera. No JVD. No lymphadenopathy. No thyroid enlargement. Heart: Regular rhythm. Normal S1, S2. Systolic murmur noted. Abdomen: Soft, active bowel sounds. Mild distention. Peritoneal dialysis catheter in place which is dry, clean, and intact. Extremities: No edema, cyanosis, or clubbing of fingers. Dorsalis pedis pulses 2+. LABORATORY: Sodium 139, potassium 3.6, chloride 99, bicarb 26, BUN 34, creatinine 3.86, glucose 98. Calcium 9.0, magnesium 1.8. BNP 16,013. WBC 9.7, hemoglobin 11.4, platelets 181 Chest x-ray showed mild pulmonary edema suggesting fluid overload. ASSESSMENT: 1. Chest pain with significant past history of coronary artery disease status post CABG. He presented with unstable angina already evaluated by a marine fire fighter. The patient will proceed with left heart catheterization. 2. End-stage renal disease on peritoneal dialysis. 3. Recent history of high-output heart failure. 4. Status post arteriovenous fistula ligation. 5. Hypertension. 6. Dyslipidemia. 7. Anemia in chronic kidney disease. 8. Renal osteodystrophy. 9. Atrial fibrillation status post ablation. 10. Rheumatic fever complicated by moderate mitral regurgitation and tricuspid regurgitation. PLAN: Per renal standpoint I will resume the peritoneal dialysis after left heart catheterization. We will perform at least one exchange today with 1.5% dextrose 2 L. I will offer the patient, if he agrees, to proceed with continuous cycler peritoneal dialysis tonight. There is no emergent indication for hemodialysis. The rest of management as per cardiology and primary team. Thank you for allowing me to participate in the care of your patient. AG
--- NOTE | 2016-08-26 18:26 | NUR ---
Dialysis note: PD cycler tx started. 9 hrs, 4 cycles, 2000 ml fill volume and 500 ml last fill, using 1.5% and 2.5% dextrose solution. Initial drain clear, no fibrin, no sediments noted. Report given to Aurelia Carr RN.
--- NOTE | 2016-08-26 19:33 | CS94 ---
[address] [address] DIAGNOSTIC CARDIAC CATHETERIZATION PATIENT: GOSIA DEJESUS : 1940 MR#: [id number] ADMIT: 08/26/2016 JOB ID: [id number] SERVICE DATE: 08/26/2016 REASON FOR CATHETERIZATION: This 75-year-old, pleasant male who has a history of three-vessel bypass surgery in May 2019 with ZAPATA graft to diagonal, SVG graft to OM, radial graft to PDA, end-stage renal disease on peritoneal dialysis, hypertension, hyperlipidemia, presented with recurrent resting as well as exertional chest pain consistent with unstable angina. The patient continued to have chest pain in the ED. His symptoms were typical. Hence, it was decided to consider left heart catheterization in anticipation of revascularization. Benefits and risks, which include, but not limited to, risk of bleeding, groin complication, myocardial infarction, stroke, coma, , renal insufficiency, and peripheral vascular complication, etc. Details discussed with the patient. He verbalizes understanding. All the questions were answered. BACON SKINNER: Alfie Ta MD PROCEDURE: 1. Left heart catheterization. 2. Wainwright coronary arteriography. 3. Graft angiography. 4. Left ventricular pressure measurement. PROCEDURE IN DETAIL: The right groin was cleaned, prepped, and draped in the usual sterile fashion. The skin and subcutaneous tissue was anesthetized with 1% lidocaine. The patient right femoral artery was accessed. Initially, a 6-Malawian regular sheath was introduced into the right femoral artery using modified Seldinger technique. The patient has tortuous iliac arteries and we have difficulty to cannulate coronaries, hence regular 6-Malawian sheath was exchanged with a long 25 cm 6-Malawian sheath over the guidewire using modified Seldinger technique. The left coronary artery was engaged with 6-Malawian JL5 and right coronary artery was engaged with 6-Malawian JR4 catheter. Saphenous vein graft to obtuse marginal and a radial graft to PDA was engaged with as 6-Malawian JR4 catheter. ZAPATA was subselectively engaged with a 5-Malawian ZAPATA catheter. All the catheters were advanced over the guidewire and flushed with heparinized saline and all the exchanges were made over the guidewire. Multiple standard projections were obtained. Total 130 cc Isovue-370 dye was used. The patient tolerated the procedure. There was no immediate complication. Sheath was left in for subsequent PCI of mid LAD by Dr. Barton. HEMODYNAMICS: LV systolic pressure was about 185 mmHg aortic, pressure 181/85 mmHg. LVEDP was about 30 mmHg, hence, left ventriculography was not performed. There was no significant pullback gradient between the aorta and left ventricle. CORONARY ARTERY ANATOMY 1. Left main left main is a large vessel and has some calcification and it was free of any significant disease. 1. LAD left anterior descending artery harbors calcification. In the mid portion it harbors long 80% to 90% disease. 2. Diagonal branch. The first diagonal branch has about tight 90% proximal disease. The septal perforators have diffuse disease as well. 3. Left circumflex artery is a nondominant artery and has some mild luminal irregularities. The obtuse marginal branch has proximal significant disease. 4. Wainwright right coronary artery was subtotal in the mid portion. 5. SVG graft to OM was patent. OM distal to the anastomotic site was patent. The radial artery graft to PDA was patent. Retrogradely, it was filling the PLV branch and the distal RCA as well. The PDA gives rise multiple branches. One of the branches was severely diseased and it was a small vessel. 6. ZAPATA graft to diagonal was patent. Diagonal was a small vessel. CONCLUSION: 1. Severe [place] mid left anterior descending disease which was not bypassed, proximal diagonal disease which is bypassed with ZAPATA graft to the diagonal which is patent. 2. Significant disease of the proximal obtuse marginal branch and saphenous vein graft to obtuse marginal is patent. 3. Subtotal [place] right coronary artery, however, radial artery graft to PDA is patent with retrograde filling to distal RCA and PLV branch. RECOMMENDATION: Cath film was reviewed with Dr. Barton and he decided to intervene with mid LAD with percutaneous intervention.
--- NOTE | 2016-08-26 20:08 | PCM.HPMED ---
Subjective Date of Service Aug 26, 2016 Primary Provider: Admitting Physician: Paul Nevarez MD Primary Care Physician: Heidy Kamara Attending Physician: Paul Nevarez MD Chief Complaint: "chest pain" History of Present Illness: Mr. Francesco Lorenzo is a 75 -year-old man with history of coronary artery disease status post 3 vessel coronary artery bypass graft in 2008 and end-stage renal disease who presented today to the emergency department for 2 weeks of intermittent, left-sided chest pain that would last around 10 minutes per episode. He describes it as a discomfort and pressure. Initially, it was with exertion. It occasionally happened at rest more recently. This morning around 6:00 the pain intensified and he was not able to sleep. It started radiating down into his arms and into his left jaw. He tried taking nitroglycerin without any relief. He had associated dyspnea and generalized weakness. He called 911 and was brought via emergency medical services to the emergency department. In the emergency department, his EKG showed ST depression in V3, V4, V5, which worsened over time, and his troponin was 0.014. He was given a loading dose of aspirin and Plavix, atorvastatin, and a beta daily. He was also given nitroglycerin without relief. He was started on a heparin drip and a nitroglycerin drip in the emergency department. Cardiology was consulted and patient was then sent to the cardiac catheterization lab where he underwent coronary angiogram and percutaneous intervention. He had orbital atherectomy and 2 stents placed in his left anterior descending artery. He feels better now after the cardiac catheterization with coronary angiogram and percutaneous intervention. He does not have chest pain, dyspnea, diaphoresis, nausea, vomiting, abdominal pain, diarrhea, numbness, tingling, or focal weakness. Review of Systems: A comprehensive review of systems was conducted with the patient and found to be negative except as above in the History of Present Illness. Allergies Coded Allergies: amlodipine (Unverified Allergy, Unknown, UNKNOWN, 11/10/15) codeine (Unverified Allergy, Unknown, unknown, 11/10/15) dronedarone (Unverified Adverse Reaction, Severe, 11/10/15) pt reports that he has never been as sick in his life, severe intolerance to medication hydrocodone bitartrate (Verified Adverse Reaction, Severe, Nausea, 11/10/15) oxycodone HCl (Verified Adverse Reaction, Severe, Nausea, 11/10/15) Home Medications Aspirin 81 mg Atorvastatin 40 mg Lasix 80 mg Hydralazine 75 mg 3 times a day Metoprolol tartrate 200 mg twice a day Tums for heartburn PMH Paroxysmal atrial fibrillation End-stage renal disease on peritoneal dialysis 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 Social History Occupation: retired homebuilder Hx Alcohol Use: Yes (on wednesday or wednesday cocktails) Hx Substance Use: Yes (marijuana- ingested not smoked) Hx Tobacco Use: No Smoking Status: Never Smoker Living Arrangement: with Family (significant other named Ariella) Exam Vital Signs Vital Sign - Last Date Time Temp Pulse Resp B/P Pulse Ox O2 Delivery O2 Flow Rate FiO2 08/26/16 15:53 36.7 64 14 142/75 97 Nasal Cannula 2.00 Exam General: Overweight, No acute distress, well-developed, appropriately interactive HEENT: Normocephalic, atraumatic. External ears without defect. Pupils equal, round, and reactive to light and accommodation. Anicteric sclerae, moist conjunctivae, and no lid lag. Oropharynx free of erythema and cobble stoning with moist mucosa. Neck: Supple with full range of motion. No jugular venous distension. No bruits. No lymphadenopathy or thyromegaly. Cardiovascular: Grade 3/6 systolic ejection murmur with radiation to axilla. Regular rate and rhythm with no rubs, or gallops appreciated Pulmonary: Clear to auscultation bilaterally with no crackles, wheezes, or rhonchi. Normal respiratory effort with no use of accessory muscles. Abdomen: Bowel tones present. Soft, nontender, nondistended. No hepatosplenomegaly or masses appreciated. Extremities: No clubbing, cyanosis, edema, or lymphadenopathy appreciated. Skin: Normal temperature, turgor, and texture; no rash, ulcers, or subcutaneous nodules appreciated. Neurological: Cranial nerves grossly intact. Normal muscle strength, tone, and bulk. Reflexes, coordination, and sensory function within normal limits. No known gait impairment. Psychiatric: Normal mood and affect. Alert and oriented to person, place, and time. Lab and Diagnostics Result Diagram: 08/26/1615 08/26/1615 Assessment & Plan Mr. Francesco Lorenzo is a 75 -year-old man with history of coronary artery disease status post 3 vessel coronary artery bypass graft in 2008 and end-stage renal disease who presented today to the emergency department for 2 weeks of intermittent, left-sided chest pain that would last around 10 minutes per episode. 1. Acute coronary syndrome, present on admission. Active. -Elevated troponin and ST depressions seen on initial EKG -Patient underwent cardiac catheterization with coronary angiogram and percutaneous intervention. He received orbital arthrectomy and 2 stents in his LAD. -Continue aspirin 81 mg, clopidogrel 75 mg, and atorvastatin 40 mg at bedtime once daily and metoprolol tartrate 200 mg twice a day -Continue home furosemide 80 mg once daily and hydralazine 75 mg 2 times a day -Cardiology consulted and following. Their time and recommendations are appreciated. 2. Paroxysmal atrial fibrillation, chronic, present on admission. -Status post ablation -Continue metoprolol and aspirin as above 3. End-stage renal disease on peritoneal dialysis, chronic, present on admission. -Nephrology consulted and following. Their time and recommendations are appreciated. 4. Hypertension, chronic, present on admission. -Continue medications as above 5. Hyperlipidemia, chronic, present on admission. -Continue medications as above 6. History of high-output heart failure, chronic, present on admission. -Status post AV fistula ligation -Cardiology consulted and following. 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 Bowel regimen Senna and MiraLAX scheduled and PRN. Zofran when necessary for nausea and vomiting. Disposition: Likely discharge tomorrow pending continued stability and improvement, patient being able to ambulate without issue, and no fistula or pseudoaneurysm of access site. Pain Evaluation: Adequate Pain Control VTE Prophylaxis: SCDs Resuscitation Status: CPR: Attempt Resuscitation Attending Statement The patient was seen and examined together with Dr. Traore on 08/26/2016 and I agree with the history, exam and plan as outlined in the note above. . copies to: Heidy Kamara Marissa L DO Aug 26, 2016 18:07 Paul Nevarez MD Aug 27, 2016 07:38
[2016-08-27] VITALS (8 sets, daily range): BP systolic 129–178; BP diastolic 58–90; PULSE 57–67; RESP 13–22; O2SAT 95–100
[2016-08-27] MEDS: Sodium Chloride LOK Flush 10 mL Syringe IVFLUSH SCH ×3 (00:30→17:22)
[2016-08-27 04:18] LABS: BASOPHILS % (AUTO) 0.1 % (0-3); EOSINOPHILS % (AUTO) 1.6 % (0-5); MONOCYTES % (AUTO) 10.7 % (4-12); Mean Corpuscular Hemoglobin 31.9 pg (27.0-35.0); Mean Corpuscular Volume 100.3 fL (81-100); Platelet Count 154 bil/L (150-400)
--- NOTE | 2016-08-27 07:44 | NUR ---
Cardiac / Peritoneal dialysis (PD) Pt denies CP throughout. VSS. Right groin hematoma remained unchanged. Sand bag applied. Hematoma slightly decreased this am. Pulses palpable. CMS appropriate. Nitro gtt weaned off. VSS. Peritoneal dialysis running over night. PD Machine alarmed one this am. Paged PD RN on-call (Maraih). Troubled shoot while on the phone. Alarm resolved. PD functioning appropriately. No overt complications noted.
[2016-08-27] MEDS ORDERED: Benzocaine-Menthol Lozenge 2/Pkg PO ONE (08:50)
--- NOTE | 2016-08-27 11:16 | PCM.PNMED ---
Subjective Date of Service Aug 27, 2016 Subjective s/p [facility] - Orbital atherectomy to the proximal and mid left anterior descending. - Balloon angioplasty and stenting to the proximal and mid left anterior descending. Exam Vital Signs Vital Sign - Last Date Time Temp Pulse Resp B/P Pulse Ox O2 Delivery O2 Flow Rate FiO2 08/27/16 09:00 Supplement Oxygen 08/27/16 08:23 36.6 67 20 178/76 100 2.00 Intake and Output 08/26/16 08/26/16 08/27/16 Cumulative From/Thru 15:00 23:00 07:00 08/26/16 07:23 - 08/27/16 06:10 Intake Total 600 ml 285 ml 885 ml Output Total 200 ml 200 ml Balance 400 ml 285 ml 685 ml Intake Oral 200 ml 200 ml 400 ml IV Total 400 ml 85 ml 485 ml Output Urine Total 200 ml 200 ml # Voids 3 5 8 Exam General appearance: Awake, alert, oriented x3. In no acute distress. HEENT: Atraumatic. Moist mucous membranes. No pallor. No icteric sclera. No JVD. No lymphadenopathy. No thyroid enlargement. Heart: Regular rhythm. Normal S1, S2. Systolic murmur noted. Lungs: CTA, B/L, no wheezes, no rhonchi. Abdomen: Soft, active bowel sounds. Mild distention. Peritoneal dialysis catheter in place which is dry, clean, and intact. Extremities: No edema, cyanosis, or clubbing of fingers. Dorsalis pedis pulses 2+. Lab and Diagnostics Result Diagram: 08/27/1633408/27/16334 Assessment & Plan ASSESSMENT: 1. ACS, unstable angina s/p [facility] on 08/26 - orbital arthrectomy and 2 stents in LAD. 2. End-stage renal disease on peritoneal dialysis. - with fluid overload. 3. Recent history of high-output heart failure status post arteriovenous fistula ligation. 4. Hypertension. 5. Dyslipidemia. 6. Anemia in chronic kidney disease. 7. Renal osteodystrophy. 8. Atrial fibrillation status post ablation. 9. Rheumatic fever complicated by moderate mitral regurgitation and tricuspid regurgitation. Plan: IV lasix 60 mg x 1, continue PO lasix. Midday PD exchange: 2.5% dextrose 2L, 3 hr. CCPD tonight: 9 hr, 4 cycles, 2.5% dextrose 2L, last fill 400 mL. VTE Prophylaxis: SCDs Resuscitation Status: CPR: Attempt Resuscitation Geneva Pascual MD Aug 27, 2016 11:16
--- NOTE | 2016-08-27 11:33 | PROG NOTE ---
[address] [address] PROGRESS NOTE PATIENT: GOSIA DEJESUS : 1940 MR#: [id number] ADMIT: 08/26/2016 JOB ID: [id number] DATE: 08/27/2016 SUBJECTIVE: The patient is feeling better. No more chest pain. Denies any worsening shortness of breath, PND, orthopnea or new cardiovascular symptoms. In summary, this 75-year-old pleasant, male who has a history of acute coronary syndrome in January 2009 at that time, he had RCA intervention, followed by unstable angina and had three-vessel bypass surgery in May 2009 with ZAPATA graft to diagonal, SVG graft to OM and radial graft to PDA, preserved LV function, moderate MR, moderate TR, end-stage renal disease on peritoneal dialysis at present, essential hypertension, hyperlipidemia, presented with recurrent chest pain symptoms from last two weeks. The patient also has history of paroxysmal AFib. Because of unstable angina, abnormal troponin, the patient underwent left heart catheterization which revealed patent grafts with southern ute LAD about 80%-90% disease in the mid portion, subtotal southern ute right coronary artery in the mid portion, mild luminal irregularities of circumflex, however, significant disease of the proximal diagonal branch as well as obtuse marginal branch, which were grafted. Subsequently, the patient underwent orbital atherectomy and two drug coated stent placement to the proximal and mid LAD by Dr. Dominguez (Xience 2.5/18 mm and 2.5/18 mm). LVEDP was about 30 mmHg. Hence the left ventriculography was not done. OBJECTIVE: Blood pressure 178/76, heart rate 67, respiratory rate 20, oxygen saturation 2 L 100%. Neck: No apparent JVP. Chest: A few basilar crepitations. CVS: Clinically S1 appears normal. P2 is not loud. No S3. No S4. Very soft ejection systolic murmur at the base. Abdomen: Obese. Extremities: No new significant pedal edema. Vascular: No evidence of critical limb ischemia. RUG HOOKER: Alert, oriented to time, place and person. Telemetry: Sinus rhythm without any significant sustained arrhythmias. LABORATORIES: Hemoglobin 9.8. In June hemoglobin was 9.9, yesterday 11.4, platelets 154. Sodium 140, potassium 3.6, BUN 33, creatinine 3.99. His peak troponin T was 0.060, repeat 0.43. Right groin ultrasound examination pending. ASSESSMENT/PLAN: Acute coronary syndrome with possible non ST-T DC status post left heart catheterization with critical disease of non grafted mid LAD status post two drug coated stents and orbital atherectomy with patent ZAPATA graft to diagonal, SVG graft to OM and radial graft to PDA with underlying hypertension, hyperlipidemia, elevated LVEDP, end-stage renal disease, etc. The patient has a right groin ecchymosis as well. At present, no obvious bruit or pulsatile mass. He had a right groin ultrasound and report is pending. At this point of time from cardiology perspective, we will recommend continuation of medical management and risk factor modification. He will need dual antiplatelet therapy for one year. He is already on high intensive statin beta daily. If data officer thinks it is appropriate, consider adding ELOY inhibitor as well. Meanwhile, will increase hydralazine to 75 mg three times a day. Will get echocardiogram. If he remains stable, he can be discharged home and followup with his shuttler car, Dr. Barragan in 1-2 weeks. Groin care explained to the patient. Total time spent today about 35 minutes.
[2016-08-27] MEDS ORDERED: Furosemide 10 mg/mL 10 mL Inj IVPUSH ONE (12:00)
--- NOTE | 2016-08-27 13:05 | DRSVH ---
PROCEDURE: US DUPLEX DOPPLER UNILATERAL LEG ARTERIES, RIGHT INDICATIONS: s/p access for cardiac cath, palpable hematoma TECHNIQUE: Color and pulse Doppler interrogation was performed of the right lower extremity arterial system, wit h image documentation. COMPARISON: None. FINDINGS: Limited sonography of the right groin demonstrates no abnormalities. No fluid collection or masses a re seen. Normal appearance of the right common femoral artery and vein as is demonstrated with spect ral and color-flow Doppler. IMPRESSION: No right groin pseudoaneurysm. Dictated by: Jose Alfredo HARRINGTON Interpreted: Ingrid Benton MD on 08/27/2016 at 13:04 Transcribed by: LORIN on 08/27/2016 at 13:05 Approved by: Ingrid Benton M.D. on 08/27/2016 at 17:13
--- NOTE | 2016-08-27 14:21 | DRSVH ---
PROCEDURE: X-RAY CHEST ONE VIEW, PORTABLE ([id number]) INDICATIONS: CONGESTIVE HEART FAILURE TECHNIQUE: One view of the chest was acquired. COMPARISON: [facility], CR, XR CHEST 1VW (PORTABLE), 08/26/2016, 7:24. FINDINGS: Surgical changes and devices: Post median sternotomy. Stable position right IJ double-lumen dialysis catheter. Lungs and pleura: No pleural effusions or pneumothorax. Lungs are clear. Mediastinum: Mediastinal contours appear normal. Heart size is enlarged. Bones and chest wall: No suspicious bony lesions. Overlying soft tissues appear unremarkable. IMPRESSION: No acute cardiopulmonary disease. Dictated by: Jose Alfredo HARRINGTON Interpreted: Ingrid Benton MD on 08/27/2016 at 14:20 Transcribed by: LORIN on 08/27/2016 at 14:21 Approved by: Ingrid Benton M.D. on 08/27/2016 at 17:07
--- NOTE | 2016-08-27 14:45 | NUR ---
Dialysis note: PD manual exchange x 1 using 2.5% dextrose solution for 3 hours dwell. PD catheter exit site dsg changed, no s/s of infection noted. PD effluent clear, no fibrin, no sediments noted. Report given to Nayely Jones RN.
--- NOTE | 2016-08-27 14:59 | DRSVH ---
[facility] [address] [place] [address] Echocardiogram Report Name: ALDAIR DEJESUS PStudy Date: 08/27/2016 Height: 69 in Hospital Exam Location: [facility] Weight: 22 2 lb Gender: Male BSA: 2.2 m2 : 1940 Age: 75 yrs BP: 129/58 mmHg Reason For Study: Acute Coronary Syndrome History: CABG, ESRD Ordering Physician: Alfie Ta Performed By: [place] Snowden Referring Physician: JHONATAN Kamara Interpretation Summary The left ventricle is normal in size. The ejection fraction is estimated to be 60-65%. There has been no significant change in LV EF since the previous study. The right ventricular systolic function is normal. There is mild to moderate mitral regurgitation. Compared to the prior echo study, there has been no change in the severity of mitral regurgitation. There is moderate to severe tricuspid regurgitation. Compared to the prior echo exam, there has been an increase in TR severity. The right ventricular systolic pressure is estimated at 67 mmHg assuming a right atrial pressure of 15 mm Hg. Compared to the prior echo exam, there has been an increase in the severity of pulmonary hypertension. Procedure: A two-dimensional transthoracic echocardiogram with color flow and Doppler was performed. The study quality was technically adequate. Comparison is made with the echocardiogram of 10/11/2015 (limited echo), 06/08/2015 (complete echo). The patient was in normal sinus rhythm during the exam. Left Ventricle: Left ventricular wall thickness is mild-moderately increased. The left ventricle is normal in size. There is moderate proximal septal thickening noted. There is no thrombus. The ejection fraction is estimated to be 60-65%. There has been no significant change since the previous study. There are no focal wall motion abnormalities. The E/E' ratio is moderately increased, suggesting possible increased filling pressures. The E/A wave ratio > 2.0 could be indicative of increased preload or reduced atrial contractility. Clinical correlation is necessary. Right Ventricle: The right ventricle is mildly dilated. The right ventricular systolic function is normal. Atria: The left atrium is mildly dilated. Right atrial size is normal. The interatrial septum is intact with no evidence for an atrial septal defect. Mitral Valve: The mitral valve leaflets appear mildly thickened, but open well. There is mild mitral annular calcification. There is mild to moderate mitral regurgitation. Compared to the prior echo study, there has been no change in the severity of mitral regurgitation. Aortic Valve: The aortic valve is trileaflet. The aortic valve is mildly calcified. The aortic valve opens well. There is no aortic valve stenosis. No aortic regurgitation is present. Tricuspid Valve: The tricuspid valve is normal. There is moderate to severe tricuspid regurgitation. The right ventricular systolic pressure is estimated at 67 mmHg assuming a right atrial pressure of 15 mm Hg. Compared to the prior echo exam, there has been an increase in TR severity. Compared to the prior echo exam, there has been an increase in the severity of pulmonary hypertension. Pulmonic Valve: The pulmonic valve leaflets are thin and pliable; valve motion is normal. There is mild pulmonic regurgitation. Great Vessels: The aortic root is normal size. The ascending aorta is mildly enlarged. Mild atherosclerotic plaque(s) in the ascending aorta. The IVC is dilated (diameter is greater than 2.1 cm) and it collapses less than 50% with a sniff. This suggests a high right atrial pressure of 15 mm Hg. Pericardium/ Pleura There is no pericardial effusion. MMode/2D Measurements & Calculations LVIDd: 4.6 cm RA long axis LVOT diam LVIDs: 2.0 cm LA A2 area: 21.1 cm FS: 56.2 % LA A4 area: 24.6 cm RA area AoV Opening EPSS: 0.48 cm LA length (vol): 6.0 cm IVSd: 1.4 cm LA vol: 73.7 ml : 20.6 cm Ao root diam LVPWd: 1.1 cm LA vol index RA vol : 63.9 ml Aortic Jxn RA IVC diam: 2.3 cm : 29.6 mm2 asc Aorta Diam: 3.7 cm LV wu. diameter/BSA LV sys. diameter/BSA RVD1 (basal) TAPSE: 1.4 cm (cm/m^2): 2.1 (cm/m^2): 0.94 Doppler Measurements & Calculations Ao V2 max MV E max chicho MV E/A: 2.7 TR max chicho : 155.1 cm/sec : 108.4 cm/sec Med Peak E' Chicho : 361.7 cm/sec Ao max PG MV A max chicho TR max PG : 9.6 mmHg : 39.5 cm/sec E/E' med: 19.4 : 52.3 mmHg Ao mean PG MV P1/2t: 68.2 msec Lat Peak E' Chicho PA V2 max : 84.6 cm/sec LVOT Max Chicho E/E' lat: 13.6 PA mean PG : 93.5 cm/sec E/e' average: 16.5 Pulm A Revs Dur PA Accel Time COLLEEN(I,D): 1.8 cm : 0.10 sec sev ratio MV A dur: 0.12 sec MV dec time MV P1/2t max chicho Ao V2 mean LV V1 max PG : 0.23 sec : 111.1 cm/sec MVA(P1/2t): 3.2 cm2 Ao V2 VTI: 35.4 cm LV V1 VTI COLLEEN(V,D): 1.8 cm2 : 21.2 cm PA V2 mean COLLEEN indexed to BSA Pulm A Revs Dur - MV A : 61.7 cm/sec (cm^2/m^2): 0.84 Dur: -0.02 msec Reading Physician:RENEE
--- NOTE | 2016-08-27 16:36 | NUR ---
Social Work: Initial Assessment/Readiness for Discharge D: Per EMR review, pt is a 75 year old male admitted for unstable angina. Pt is Medicare with [employer] supplement and LTC; pt has no VA benefits. PCP is ROGERIO Preston. NOK is Nani Johnson, s/o, . Advanced directives completed but not on file- pt declined to have family provide copy and states that they have copies if necessary. Readmit score is moderate, 3/8. CONTRACT AGENT met with pt at bedside. Sw role and contact information provided. See initial assessment. Pt lives in [facility] with his s/o. Pt is I with ADLs at baseline and continues to drive. Pt uses no DME. Pt has never had Home health and had a brief stay at [facility] many years ago. Pt reports no concerns with discharge home to his single-story home. Pt states his s/o and her sister will transport him. Pt underwent HD today and is expected to d/c home tomorrow. Pt has been ambulating I during admission. CONTRACT AGENT spoke with bedside RN who confirms pt will likely have no needs. A: Pt who is I at baseline. P: Anticipate pt to discharge home when medically ready via POV; CONTRACT AGENT to continue to follow. BUDDY Billy Addendum: 08/27/16 at 1641 by ANOOP LOPEZ SS Amended: Links added.
--- NOTE | 2016-08-27 18:05 | NUR ---
Dialysis note: PD cycler tx started. 9 hrs, 4 cycles, 2000 ml fill volume and 400 ml last fill, using 2.5% dextrose solution. Initial drain clear, no fibrin, no sediments noted. Report given to Nayely Jones RN.
--- NOTE | 2016-08-27 18:38 | NUR ---
Activity/Groin Patient a/o x 4, RODRIGUEZ. Right groin soft with bruising and small hematoma. Bilat pedal pulses palpable. See vitals. Tele SR. Patient oob to chair this a.m. concha sitting up for approx 20 min c/o dizziness, SBP 170's a.m. meds given. Patient standing at bedside to void, stated dizziness has improved after first time oob. Echo and ultrasound done this a.m. Peritoneal dialysis set up per morale officer.
--- NOTE | 2016-08-27 18:43 | PCM.PNMED ---
Subjective Date of Service Aug 27, 2016 Subjective Mr. Francesco Lorenzo is a 75 -year-old man with history of coronary artery disease status post 3 vessel coronary artery bypass graft in 2009 and end-stage renal disease who presented today to the emergency department for 2 weeks of intermittent, left-sided chest pain that would last around 10 minutes per episode. This morning, Mr. Lorenzo states that he feels great. He does not have chest pain or dyspnea. The right groin access site is only painful with palpation. He has been urinating a lot. Exam Vital Signs Vital Sign - Last Date Time Temp Pulse Resp B/P Pulse Ox O2 Delivery O2 Flow Rate FiO2 08/27/16 14:45 37.0 64 16 146/75 96 Nasal Cannula 2.00 Intake and Output 08/26/16 08/26/16 08/27/16 Cumulative From/Thru 15:00 23:00 07:00 08/26/16 07:23 - 08/27/16 06:10 Intake Total 600 ml 285 ml 885 ml Output Total 200 ml 200 ml Balance 400 ml 285 ml 685 ml Intake Oral 200 ml 200 ml 400 ml IV Total 400 ml 85 ml 485 ml Output Urine Total 200 ml 200 ml # Voids 3 5 8 Exam General: Overweight, No acute distress, well-developed, appropriately interactive HEENT: Normocephalic, atraumatic. External ears without defect. Pupils equal, round, and reactive to light and accommodation. Anicteric sclerae, moist conjunctivae, and no lid lag. Oropharynx free of erythema and cobble stoning with moist mucosa. Neck: Supple with full range of motion. No jugular venous distension. No bruits. No lymphadenopathy or thyromegaly. Cardiovascular: Grade 3/6 systolic ejection murmur with radiation to axilla. Regular rate and rhythm with no rubs, or gallops appreciated Pulmonary: Clear to auscultation bilaterally with no crackles, wheezes, or rhonchi. Normal respiratory effort with no use of accessory muscles. Abdomen: Bowel tones present. Soft, nontender, nondistended. No hepatosplenomegaly or masses appreciated. Extremities: Right femoral access site palpable hematoma with mild surrounding ecchymosis. No clubbing, cyanosis, edema, or lymphadenopathy appreciated. Skin: Normal temperature, turgor, and texture; no rash, ulcers, or subcutaneous nodules appreciated. Neurological: Cranial nerves grossly intact. Normal muscle strength, tone, and bulk. Reflexes, coordination, and sensory function within normal limits. No known gait impairment. Psychiatric: Normal mood and affect. Alert and oriented to person, place, and time. IVs and Medications Medications Reviewed: Medications were reviewed in detail Lab and Diagnostics Result Diagram: 08/27/1633408/27/16334 Cardiac Echo Impressions Echocardiogram Report Interpretation Summary The left ventricle is normal in size. The ejection fraction is estimated to be 60-65%. There has been no significant change in LV EF since the previous study. The right ventricular systolic function is normal. There is mild to moderate mitral regurgitation. Compared to the prior echo study, there has been no change in the severity of mitral regurgitation. There is moderate to severe tricuspid regurgitation. Compared to the prior echo exam, there has been an increase in TR severity. The right ventricular systolic pressure is estimated at 67 mmHg assuming a right atrial pressure of 15 mm Hg. Compared to the prior echo exam, there has been an increase in the severity of pulmonary hypertension. Reading Physician:PM Assessment & Plan Mr. Francesco Lorenzo is a 75 -year-old man with history of coronary artery disease status post 3 vessel coronary artery bypass graft in 2008 and end-stage renal disease who presented today to the emergency department for 2 weeks of intermittent, left-sided chest pain that would last around 10 minutes per episode. 1. Acute coronary syndrome, present on admission. Active. -Elevated troponin and ST depressions seen on initial EKG -Patient underwent cardiac catheterization with coronary angiogram and percutaneous intervention yesterday. He received orbital arthrectomy and 2 stents in his LAD. -Continue aspirin 81 mg, clopidogrel 75 mg, and atorvastatin 40 mg at bedtime once daily and metoprolol tartrate 200 mg twice a day -Continue home furosemide 80 mg once daily and hydralazine 75 mg 2 times a day -Cardiology consulted and following. Their time and recommendations are appreciated. -Right femoral access site with small hematoma. US did not show a pseudoaneurysm. 2. End-stage renal disease on peritoneal dialysis, chronic, present on admission. -Nephrology consulted and following. Their time and recommendations are appreciated. -Peritoneal dialysis last night. Scheduled for midday and then overnight. -He received an additional furosemide 60 mg IV push today 3. Paroxysmal atrial fibrillation, chronic, present on admission. -Status post ablation -Continue metoprolol and aspirin as above 4. Hypertension, chronic, present on admission. -Continue medications as above 5. Hyperlipidemia, chronic, present on admission. -Continue medications as above 6. History of high-output heart failure, chronic, present on admission. -Status post AV fistula ligation. -Echocardiogram today showed EF 60-65%. -Cardiology consulted and following. 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 Bowel regimen Senna and MiraLAX scheduled and PRN. Zofran when necessary for nausea and vomiting. Disposition: Likely discharge tomorrow pending continued stability and improvement and patient being able to ambulate without issue Pain Evaluation: Adequate Pain Control VTE Prophylaxis: SCDs Resuscitation Status: CPR: Attempt Resuscitation Attending Statement The patient was seen and examined together with Dr. Traore on 08/27/2016 and I agree with the history, exam and plan as outlined in the note above. . Hansa Traore DO Aug 27, 2016 14:59 Paul Nevarez MD Aug 30, 2016 07:42
[2016-08-28] MEDS: Sodium Chloride LOK Flush 10 mL Syringe IVFLUSH SCH ×2 (00:30→08:06)
[2016-08-28 03:17] VITALS: BP 150/76; PULSE 60; RESP 20; O2SAT 99
--- NOTE | 2016-08-28 03:57 | NUR ---
Tele/Dialysis/Groin Groin access site minimal swelling, no tenderness, no s/s hematoma, On peritoneal dialysis, all s/s within base for pt. as are VS. A&O x3, using call light appropriately, RA, IV SL flushing freely, Tele [id number]
[2016-08-28 04:01] LABS: BASOPHILS % (AUTO) 0.3 % (0-3); EOSINOPHILS % (AUTO) 3.9 % (0-5); MONOCYTES % (AUTO) 12.2 % (4-12); Mean Corpuscular Hemoglobin 32.3 pg (27.0-35.0); Mean Corpuscular Volume 101.3 fL (81-100); NEUTROPHILS % (AUTO) 72.1 % (40-74); Platelet Count 146 bil/L (150-400)
[2016-08-28 04:50] VITALS: PULSE 59
[2016-08-28 07:34] VITALS: BP 135/75; PULSE 60; RESP 16; O2SAT 99
[2016-08-28 08:00] VITALS: PULSE 63
[2016-08-28] MEDS ORDERED: Potassium Chloride 20 mEq SR Tablet PO STA (09:00)
--- NOTE | 2016-08-28 10:13 | PROG NOTE ---
[address] [address] PROGRESS NOTE PATIENT: GOSIA DEJESUS : 1940 MR#: [id number] ADMIT: 08/26/2016 JOB ID: [id number] DATE: 08/28/2016 SUBJECTIVE: The patient is feeling much better. No active chest pain or shortness of breath or PND, orthopnea, or new cardiovascular symptoms. He had dialysis. According to the nephrology, they took out 1 kg extra fluid. OBJECTIVE: Blood pressure 135/75, heart rate 60, respiratory rate 16, oxygen saturation 99% on 3 L. Neck: No apparent JVD. Chest: No obvious crepitation or rhonchi. CVS: S1 appears normal. P2 not loud. No S3. No S4. Very soft ejection systolic murmur at the base. Abdomen: Obese. Extremities: No new significant pedal edema. Right groin examination revealed diffuse ecchymosis without any pulsatile mass or bruit. CLINICAL PRODUCT SPECIALIST: Alert, oriented to time, place and person. The patient has a right groin ultrasound which did not reveal any pseudoaneurysm or significant fluid collection or hematoma. Hemoglobin 10.3, which is stable. Platelets 146, sodium 144, potassium 3.3, BUN 32, creatinine 4.69. EKG today revealed sinus rhythm. The patient has some nonspecific ST-T changes. However, QTc 586 msec which has prolonged. His potassium is 3.3. ASSESSMENT AND PLAN: Acute coronary syndrome status post left heart catheterization which revealed critical disease of non grafted mid LAD status post two drug coated stents, and orbital atherectomy with patent ZAPATA graft to diagonal, SVG graft to OM and radial graft to PDA with underlying hypertension, hyperlipidemia, elevated LVEDP, end-stage renal disease. He had an echocardiogram yesterday which revealed LV ejection fraction 60%-65% without any significant change from the previous study, [id number] MR, [id number] TR and pulmonary artery systolic pressure about 67 mmHg. At present, he is hemodynamically stable. He is not having active chest pain. His QTc is prolonged, could be due to hypokalemia. Will recommend potassium supplementation and keep the potassium around 4. I talked to his digital performance analyst. They will manage his electrolytes. He is on very high dose of beta daily like metoprolol tartrate total 400 mg daily. Will recommend to cut down to 100 mg twice a day. Continue high intensity statin with dual anti-platelet therapy. If the digital performance analyst thinks it is appropriate, consider ELOY inhibitor as well. At this point of time, Cardiology service will sign off. Groin care explained to the patient. Follow up with Dr. Barragan as an outpatient in 1-2 weeks. TOTAL TIME SPENT: Today about 30 minutes. MTDD
[2016-08-28] MEDS ORDERED: POTA10TA38 PO (11:31)
[2016-08-28] MEDS ORDERED: CLOP75TA28 PO (11:31)
[2016-08-28] MEDS ORDERED: METO100T3 PO (11:31)
--- NOTE | 2016-08-28 11:38 | PCM.DIMED ---
Hansa Traore DO 08/28/16 1044: Discharge Instructions Date of Service Aug 28, 2016 Dates of Hospitalization Aug 26, 2016 at 10:08 Discharge Diagnosis Discharge Diagnosis 1. Acute coronary syndrome 2. End-stage renal disease on peritoneal dialysis 3. Paroxysmal atrial fibrillation 4. Hypertension 5. Hyperlipidemia 6. History of high-output heart failure Diet Heart Healthy, Renal Diet Activity Limited until seen by PCP Call your provider Fever or Chills, Shortness of breath, Bleeding, Chest pain Patient Instructions Continue aspirin, atorvastatin, furosemide, and hydralazine as previously prescribed. Decrease metoprolol to 100 mg twice per day. Start taking clopidogrel 75 mg once daily, and it is very important to take this medication every day. Start taking potassium 10 mEq once daily. Follow up with your refractory furnace designer and discuss possibly adding a new medication called an ELOY inhibitor to your regimen. Follow up with your primary care provider within 1 week with follow up blood work to check your BMP. Follow-up Provider: Heidy Kamara Follow-up with PCP in: 1 week Provider: Jsason Marcelo MD Follow-up in: 2 weeks Paul Nevarez MD 08/30/16 0745: Discharge Instructions Attending's Statement The patient was seen and examined together with Dr. Traore on 08/28/2016 and I agree with the history, exam and plan as outlined in the note above. . Hansa Traore DO Aug 28, 2016 10:44 Paul Nevarez MD Aug 30, 2016 07:45
--- NOTE | 2016-08-28 13:00 | NUR ---
Social Work: Discharge D: Pt discussed in am rounds. Pt is medically stable for discharge home. AGRISCIENCE INSTRUCTOR met with pt at bedside to confirm discharge plan and reassess for any unmet needs. Pt has been I during admission and declines any HH or discharge needs. EMR reviewed; per care trends pt was I during admission. No social work needs or barriers identified. A: Pt who is I at baseline. P: Pt to discharge home today via POV; no sw needs. BUDDY Rodriguez
--- NOTE | 2016-08-28 13:16 | NUR ---
Discharge Pt received regular AM medications as well as dose of Potassium. Medication education provided to pt and to significant other. Pt denies any pain or discomfort. Pt provided with educational materials, signed scripts, and info about procedure. IV removed from L forearm. Tele removed. Pt and significant other let the facility around 1250 with all belongings.
--- NOTE | 2016-08-28 13:47 | PCM.PNMED ---
Subjective Date of Service Aug 28, 2016 Subjective Doing better, no CP/SOB K 3.3 Exam Vital Signs Vital Sign - Last Date Time Temp Pulse Resp B/P Pulse Ox O2 Delivery O2 Flow Rate FiO2 08/28/16 08:00 63 08/28/16 07:34 36.8 16 135/75 99 Nasal Cannula 3.00 Intake and Output 08/27/16 08/27/16 08/28/16 Cumulative From/Thru 14:59 22:59 06:59 08/26/16 07:23 - 08/28/16 06:07 Intake Total 200 ml 1085 ml Output Total 1051.00 ml 1251.00 ml Balance -1051.00 ml 200 ml -166.00 ml Intake Oral 200 ml 600 ml IV Total 485 ml Output Urine Total 200 ml Ultrafiltrate 1051.00 ml 1051.00 ml # Voids 2 10 Exam General appearance: Awake, alert, oriented x3. In no acute distress. HEENT: Atraumatic. Moist mucous membranes. No pallor. No icteric sclera. No JVD. No lymphadenopathy. No thyroid enlargement. Heart: Regular rhythm. Normal S1, S2. Systolic murmur noted. Lungs: CTA, B/L, no wheezes, no rhonchi. Abdomen: Soft, active bowel sounds. Mild distention. Peritoneal dialysis catheter in place which is dry, clean, and intact. Extremities: No edema, cyanosis, or clubbing of fingers. Dorsalis pedis pulses 2+. Lab and Diagnostics Result Diagram: 08/28/[id number]/28/[id number] Cardiac Echo Impressions Echocardiogram Report Interpretation Summary The left ventricle is normal in size. The ejection fraction is estimated to be 60-65%. There has been no significant change in LV EF since the previous study. The right ventricular systolic function is normal. There is mild to moderate mitral regurgitation. Compared to the prior echo study, there has been no change in the severity of mitral regurgitation. There is moderate to severe tricuspid regurgitation. Compared to the prior echo exam, there has been an increase in TR severity. The right ventricular systolic pressure is estimated at 67 mmHg assuming a right atrial pressure of 15 mm Hg. Compared to the prior echo exam, there has been an increase in the severity of pulmonary hypertension. Reading Physician:PM Assessment & Plan 1. ACS, unstable angina s/p [facility] on 08/26 - orbital arthrectomy and 2 stents in LAD. 2. End-stage renal disease on peritoneal dialysis. 3. Recent history of high-output heart failure status post arteriovenous fistula ligation. 4. Hypertension. 5. Dyslipidemia. 6. Anemia in chronic kidney disease. 7. Renal osteodystrophy. 8. Atrial fibrillation status post ablation. 9. Rheumatic fever complicated by moderate mitral regurgitation and tricuspid regurgitation. Plan: replace KCL 40 meq. start KCL 10 meq PO daily. resume his PD prescription. f/u his primary tire trucker. VTE Prophylaxis: SCDs VTE Mechanical Devices: Intermittant Pneumatic CD Resuscitation Status: CPR: Attempt Resuscitation Geneva Pascual MD Aug 28, 2016 13:46
--- NOTE | 2016-08-28 19:50 | PCM.DC.MED ---
Discharge Summary Date of Service Aug 28, 2016 Dates of Hospitalization Date of Hospital Admission Aug 26, 2016 at 10:08 Date of Discharge: Aug 28, 2016 Providers: Admitting Physician: Paul Nevarez MD Primary Care Physician: Heidy Kamara Attending Physician: Paul Nevarez MD Diagnosis at Time of Discharge Diagnosis at Time of Discharge 1. Acute coronary syndrome 2. End-stage renal disease on peritoneal dialysis 3. Paroxysmal atrial fibrillation 4. Hypertension 5. Hyperlipidemia 6. History of high-output heart failure Procedures XRay, CTs & MRIs PROCEDURE: X-RAY CHEST ONE VIEW, PORTABLE IMPRESSION: No acute cardiopulmonary disease. Approved by: Ingrid Benton M.D. on 08/27/2016 at 17:07 Cardiac Echo Impression Echocardiogram Report Interpretation Summary The left ventricle is normal in size. The ejection fraction is estimated to be 60-65%. There has been no significant change in LV EF since the previous study. The right ventricular systolic function is normal. There is mild to moderate mitral regurgitation. Compared to the prior echo study, there has been no change in the severity of mitral regurgitation. There is moderate to severe tricuspid regurgitation. Compared to the prior echo exam, there has been an increase in TR severity. The right ventricular systolic pressure is estimated at 67 mmHg assuming a right atrial pressure of 15 mm Hg. Compared to the prior echo exam, there has been an increase in the severity of pulmonary hypertension. Reading Physician: RENEE Brief History From the history and physical performed by Dr. Hansa Traore on 08/26/2016: Mr. Francesco Lorenzo is a 75 -year-old man with history of coronary artery disease status post 3 vessel coronary artery bypass graft in 2008 and end-stage renal disease who presented today to the emergency department for 2 weeks of intermittent, left-sided chest pain that would last around 10 minutes per episode. He describes it as a discomfort and pressure. Initially, it was with exertion. It occasionally happened at rest more recently. This morning around 6:00 the pain intensified and he was not able to sleep. It started radiating down into his arms and into his left jaw. He tried taking nitroglycerin without any relief. He had associated dyspnea and generalized weakness. He called 911 and was brought via emergency medical services to the emergency department. In the emergency department, his EKG showed ST depression in V3, V4, V5, which worsened over time, and his troponin was 0.014. He was given a loading dose of aspirin and Plavix, atorvastatin, and a beta daily. He was also given nitroglycerin without relief. He was started on a heparin drip and a nitroglycerin drip in the emergency department. Cardiology was consulted and patient was then sent to the cardiac catheterization lab where he underwent coronary angiogram and percutaneous intervention. He had orbital atherectomy and 2 stents placed in his left anterior descending artery. He feels better now after the cardiac catheterization with coronary angiogram and percutaneous intervention. He does not have chest pain, dyspnea, diaphoresis, nausea, vomiting, abdominal pain, diarrhea, numbness, tingling, or focal weakness. Hospital Course Mr. Francesco Lorenzo is a 75 -year-old man with history of coronary artery disease status post 3 vessel coronary artery bypass graft in 2008 and end-stage renal disease who presented today to the emergency department for 2 weeks of intermittent, left-sided chest pain that would last around 10 minutes per episode. 1. Acute coronary syndrome, present on admission. Active. -Elevated troponin and ST depressions seen on initial EKG -Patient underwent cardiac catheterization with coronary angiogram and percutaneous intervention. He received orbital arthrectomy and 2 stents in his LAD. -Continued aspirin 81 mg, clopidogrel 75 mg, and atorvastatin 40 mg at bedtime once daily -Continued home furosemide 80 mg once daily and hydralazine 75 mg 2 times a day -Cardiology consulted and followed. Their time and recommendations were appreciated. -Right femoral access site initially yesterday with small hematoma, which improved today. Ultrasound did not show a pseudoaneurysm. -Metoprolol decreased to 100 mg twice per day. -Patient needs to follow up with Dr. Barragan in 1-2 weeks. 2. End-stage renal disease on peritoneal dialysis, chronic, present on admission. -Nephrology consulted and followed. Their time and recommendations were appreciated. -Peritoneal dialysis received during his hospital stay. -Patient had hypokalemia and was given 40 mEq of potassium chloride this morning. Patient started on 10 mEq of potassium chloride once daily. QTc EKG improved after potassium was administered. -Patient should continue peritoneal dialysis as previously scheduled and follow- up with his primary director of compensation. If his primary director of compensation agrees, we would recommend adding an ELOY inhibitor to his medication regimen. 3. Paroxysmal atrial fibrillation, chronic, present on admission. -Status post ablation -Continued aspirin and decrease metoprolol to 100 mg twice per day today. 4. Hypertension, chronic, present on admission. -Continued medications as above 5. Hyperlipidemia, chronic, present on admission. -Continued medications as above 6. History of high-output heart failure, chronic, present on admission. -Status post atriovenous fistula ligation. -Echocardiogram on 08/27/2016 showed EF 60-65%. -Cardiology consulted and followed. 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 External ears without defect. Pupils equal, round, and reactive to light and accommodation. Anicteric sclerae, moist conjunctivae, and no lid lag. Oropharynx free of erythema and cobble stoning with moist mucosa. Neck: Supple with full range of motion. No jugular venous distension. No bruits. No lymphadenopathy or thyromegaly. Cardiovascular: Grade 3/6 systolic ejection murmur with radiation to axilla. Regular rate and rhythm with no rubs, or gallops appreciated Pulmonary: Clear to auscultation bilaterally with no crackles, wheezes, or rhonchi. Normal respiratory effort with no use of accessory muscles. Abdomen: Bowel tones present. Soft, nontender, nondistended. No hepatosplenomegaly or masses appreciated. Extremities: Right femoral access site no palpable hematoma with mild surrounding ecchymosis. No clubbing, cyanosis, edema, or lymphadenopathy appreciated. Skin: Normal temperature, turgor, and texture; no rash, ulcers, or subcutaneous nodules appreciated. Neurological: Cranial nerves grossly intact. Normal muscle strength, tone, and bulk. Reflexes, coordination, and sensory function within normal limits. No known gait impairment. Psychiatric: Normal mood and affect. Alert and oriented to person, place, and time. Test 08/26/16 08:15 08/26/16 10:12 08/26/16 11:00 08/26/16 16:00 Magnesium Level 1.8mg/dL (1.6-2.6) Pro-B-Type Natriuretic Peptide 02603jm/mL (0-376) Thyroid Stimulating Hormone (TSH) 2.470uIU/mL (0.450-4.500) Hold Gant Top Tube Received (Received) Hemoglobin A1c 5.0% (4.8-5.6) Urine Color Straw (YELLOW) Urine Appearance Hazy (CLEAR,HAZY) Urine pH 7.5 (5.0-8.0) Urine Specific [place] 1.020 (1.003-1.035) Urine Protein 100mg/dL (NEG,TRACE) Urine Glucose (UA) 100mg/dL (NEGATIVE) Urine Ketones Negativemg/dL (NEGATIVE) Urine Occult Blood Trace (NEGATIVE) Urine Nitrite Negative (NEGATIVE) Urine Bilirubin Negative (NEGATIVE) Urine Urobilinogen Normalmg/dL (NORMAL) Urine Leukocyte Esterase Negative (NEGATIVE) Urine RBC 0-2/hpf (0-2) Urine WBC 0-5/hpf (0-5) Urine Epithelial Cells Occasional/hpf (NONE-MOD) Urine Crystals None seen (NONE SEEN) Urine Bacteria None/hpf (NONE-FEW) Urine Hyaline Casts Occasional/lpf (NONE) Urine Granular Casts None seen (NONE SEEN) Urine Waxy Casts None seen (NONE SEEN) Urine Red Blood Cell Casts None seen (NONE SEEN) Urine White Blood Cell Casts None seen (NONE SEEN) Urine Mucus None seen (None Seen) Urine Trichomonas None seen (NONE SEEN) Urine Yeast None (NONE SEEN) Urinalysis Comment None Urine Culture Reflexed Not indicated Total Creatine Kinase 46U/L (21-232) Creatine Kinase MB 2.4ng/mL (0.0-10.4) Creatine Kinase MB % % (0.0-5.0) Test 08/26/16 22:10 08/27/16 03:35 08/28/16 03:15 Troponin T 0.430ug/L (0.0-0.011) Triglycerides Level 55mg/dL (0-149) Cholesterol Level 103mg/dL (100-199) LDL Cholesterol, Calculated 26.000mg/dL (0-99) VLDL Cholesterol 11.000mg/dL HDL Cholesterol 66mg/dL (>39) Cholesterol/HDL Ratio 1.56 (0.0-4.4) White Blood Count 6.7th/mm3 (3.8-10.1) Red Blood Count 3.19mil/mm3 (4.40-5.80) Hemoglobin 10.3g/dL (13.8-17.2) Hematocrit 32.3% (41.0-50.0) Mean Corpuscular Volume 101.3fL (81-100) Mean Corpuscular Hemoglobin 32.3pg (27.0-35.0) Mean Corpuscular Hemoglobin Concent 31.9% (32.0-37.0) Red Cell Distribution Width 14.1% (12.3-15.4) Platelet Count 146bil/L (150-400) Neutrophils (%) (Auto) 72.1% (40-74) Lymphocytes (%) (Auto) 11.2% (14-46) Monocytes (%) (Auto) 12.2% (4-12) Eosinophils (%) (Auto) 3.9% (0-5) Basophils (%) (Auto) 0.3% (0-3) Sodium Level 144mEq/L (134-144) Potassium Level 3.3mEq/L (3.5-5.2) Chloride Level 102mEq/L (97-108) Carbon Dioxide Level 29mmol/L (18-29) Blood Urea Nitrogen 32mg/dL (8-27) Creatinine 4.69mg/dL (0.76-1.27) Estimat Glomerular Filtration Rate 13mL/min (>59) Glucose Level 112mg/dL (60-99) Calcium Level 8.2mg/dL (8.5-10.1) Total Bilirubin 0.7mg/dL (0.0-1.2) Aspartate Amino Transf (AST/SGOT) 43U/L (0-50) Alanine Aminotransferase (ALT/SGPT) 56U/L (0-44) Alkaline Phosphatase 136U/L (25-160) Total Protein 5.6g/dL (6.4-8.4) Albumin 3.3g/dL (3.4-5.0) Discharge Medications Discharge Medications Aspirin (Aspirin) 81 Mg Tablet 162 MG PO DAILY (Reported) Atorvastatin (Lipitor) 40 Mg Tablet 40 MG PO HS (Reported) Calcium Carbonate (Tums) 500 Mg Tab.chew 1,000 MG PO BID (Reported) Clopidogrel (Clopidogrel) 75 Mg Tablet 75 MG PO DAILY Prescribed by: HANSA TRAORE DO Furosemide (Lasix) 80 Mg Tablet 80 MG PO DAILY (Reported) make take 80 if needed Hydralazine (Hydralazine) 50 Mg Tablet 75 MG PO BID (Reported) Metoprolol Tartrate (Metoprolol Tartrate) 100 Mg Tablet 100 MG PO BID Prescribed by: HANSA TRAORE DO Potassium Chloride (Potassium Chloride) 10 Meq Tab.er.prt 10 MEQ PO DAILYWM Prescribed by: HANSA TRAORE DO As needed Allopurinol (Allopurinol) 100 Mg Tablet 100 MG PO PRN For Pain (Reported) Followup Plan Discharge Diet: Heart Healthy, Renal Diet Discharge Activity: Limited until seen by PCP Patient Instructions Continue aspirin, atorvastatin, furosemide, and hydralazine as previously prescribed. Decrease metoprolol to 100 mg twice per day. Start taking clopidogrel 75 mg once daily, and it is very important to take this medication every day. Start taking potassium 10 mEq once daily. Follow up with your director of compensation and discuss possibly adding a new medication called an ELOY inhibitor to your regimen. Follow up with your primary care provider within 1 week with follow up blood work to check your BMP. Follow-up Provider: Heidy Kamara Follow-up with PCP in: 1 week Provider: Jasson Marcelo MD Follow-up in: 2 weeks Mid-level Provider: Jairo Barragan MD Follow-up with Mid-level in: 2 weeks Time spent Greater than 30 minutes was spent in preparation of discharge with greater than 50% of that time dedicated to patient counseling and coordination of care. . Attending Statement The patient was seen and examined together with Dr. Traore on 08/28/2016 and I agree with the history, exam and plan as outlined in the note above. . copies to: Jairo Barragan MD; Jasson Marcelo MD; Heidy Kamara Marissa L DO Aug 28, 2016 19:50 Paul Nevarez MD Aug 30, 2016 07:46
== END 2016-08-28 12:51 | disposition home or self-care (01) | DRG 246 ==
LOC: SED 07:18 → CCU 10:08 → PCC 08-27 09:58
PROVIDERS: ADMIT Internal Medicine; ATTEND Internal Medicine
PROC: X2C0361 Extirpation of Matter from Coronary Artery, One Artery using Orbital Atherectomy Technology, Percutaneous Approach, New Technology Group 1 (ICD-10-PCS; principal; 2016-08-26)
PROC: 027035Z Dilation of Coronary Artery, One Artery with Two Drug-eluting Intraluminal Devices, Percutaneous Approach (ICD-10-PCS; 2016-08-26)
PROC: 4A023N7 Measurement of Cardiac Sampling and Pressure, Left Heart, Percutaneous Approach (ICD-10-PCS; 2016-08-26)
PROC: B2111ZZ Fluoroscopy of Multiple Coronary Arteries using Low Osmolar Contrast (ICD-10-PCS; 2016-08-26)
PROC: B2151ZZ Fluoroscopy of Left Heart using Low Osmolar Contrast (ICD-10-PCS; 2016-08-26)
PROC: B2181ZZ Fluoroscopy of Left Internal Mammary Bypass Graft using Low Osmolar Contrast (ICD-10-PCS; 2016-08-26)
PROC: B2121ZZ Fluoroscopy of Single Coronary Artery Bypass Graft using Low Osmolar Contrast (ICD-10-PCS; 2016-08-26)
PROC: 3E1M39Z Irrigation of Peritoneal Cavity using Dialysate, Percutaneous Approach (ICD-10-PCS; 2016-08-26)
DX: I25.110 Atherosclerotic heart disease of native coronary artery with unstable angina pectoris (principal); N18.6 End stage renal disease; I24.9 Acute ischemic heart disease, unspecified; I13.2 Hypertensive heart and chronic kidney disease with heart failure and with stage 5 chronic kidney disease, or end stage renal disease; I48.0 Paroxysmal atrial fibrillation; Z79.82 Long term (current) use of aspirin; Z99.2 Dependence on renal dialysis; E78.5 Hyperlipidemia, unspecified; I50.9 Heart failure, unspecified; Z95.1 Presence of aortocoronary bypass graft; Z95.5 Presence of coronary angioplasty implant and graft; Z85.46 Personal history of malignant neoplasm of prostate; D63.1 Anemia in chronic kidney disease; I08.1 Rheumatic disorders of both mitral and tricuspid valves

== ENCOUNTER 2016-08-29 16:08 | Inpatient (IN) | payer MEDICARE, OTHER ==
[2016-08-29] VITALS (10 sets, daily range): BP systolic 113–184; BP diastolic 47–86; PULSE 60–64; RESP 14–20; O2SAT 96–100
[~2016-08-29] VITALS: Ht 175.3 cm; Wt 88.3 kg
[~2016-08-29 16:08] MED LIST changes: -AMIO200T PO; -CALC0.257 PO; +CALC500T9 PO; +CLOP75TA28 PO; +POTA10TA38 PO; -SODI650T PO; +ZYL100 PO
--- NOTE | 2016-08-29 16:16 | ED.REPORT ---
HPI-General Illness Date of Service Aug 29, 2016 ED Provider: Efrain Santos DO Patient is a 75 year old male w/ a hx of cardiac stents, CABG, CHF, CAD, HTN, hyperlipidemia, A-Fib, ARF on dialysis, who was released from the ED yesterday for chest pain now presents to the ED via EMS c/o of increasingly severe weakness and dyspnea. These symptoms began immediately after having cardiac stents placed 3 days ago (08/26/16). He does not feel like he's having a heart attack, he simply cannot get his bp to stabilize. His bp is "driving him crazy " bc it is constantly "swinging up and down." Since discharge yesterday, he reports he's been having extreme SOB, "not getting enough air," generalized weakness, dizziness, and nausea. Moving from the stretcher to the hospital gurney wore him out, which is abnormal and he is unable to sit up in the gurney. He is not on oxygen at home. He was started on home dialysis recently, PD for 3 weeks and hemodialysis for 2 months. Patient denies chest pain, abdominal pain, and headache. Pt is on Metoprolol (200mg 2x/day), Lasix (80 mg 1x/day), Atorvastatin, Plavix, and half an adult aspirin. Post-surgery, the doctors reduced his Metoprolol to 100mg 2x/day, which the pt says has "not gone well." His previous combination of BP medications worked well and he is annoyed the doctors changed his dosages. last bp 180 systolic Nursing Notes Stated Complaint: SHORTNESS OF BREATH Chief Complaint: General Complaint Nursing Notes Reviewed: Yes Allergies: Coded Allergies: amlodipine (Unverified Allergy, Unknown, UNKNOWN, 11/10/15) codeine (Unverified Allergy, Unknown, unknown, 11/10/15) dronedarone (Unverified Adverse Reaction, Severe, 11/10/15) pt reports that he has never been as sick in his life, severe intolerance to medication hydrocodone bitartrate (Verified Adverse Reaction, Severe, Nausea, 11/10/15) oxycodone HCl (Verified Adverse Reaction, Severe, Nausea, 11/10/15) Scheduled Aspirin (Aspirin) 81 Mg Tablet 162 MG PO DAILY Atorvastatin (Lipitor) 40 Mg Tablet 40 MG PO HS Calcium Carbonate (Tums) 500 Mg Tab.chew 1,000 MG PO BID Clopidogrel (Clopidogrel) 75 Mg Tablet 75 MG PO DAILY Furosemide (Lasix) 80 Mg Tablet 80 MG PO DAILY make take 80 if needed Hydralazine (Hydralazine) 50 Mg Tablet 75 MG PO BID Losartan Potassium (Cozaar) 100 Mg Tablet 100 MG PO DAILY Metoprolol Tartrate (Metoprolol Tartrate) 100 Mg Tablet 100 MG PO BID Potassium Chloride (Potassium Chloride) 10 Meq Tab.er.prt 10 MEQ PO DAILYWM Spironolactone (Aldactone) 25 Mg Tablet 25 MG PO BID Scheduled PRN Allopurinol (Allopurinol) 100 Mg Tablet 100 MG PO PRN For Pain General Time Seen by MD: 16:15 Chief Complaint Weakness Hx Obtained From: Patient Arrived By: Ambulance Sudden in Onset?: Yes Onset Occurred: Just prior to arrival Symptom Duration: Since onset Severity: Current: No pain currently Associated with: Reports: Dizziness, Nausea, Shortness of breath Recent Healthcare: Recent doctor visit, Recent hospitalization, Previous surgery Similar Sx Previous: Yes Past Medical History Past Medical History chronic renal failure valvular heart disease rhematic fever High flow fistula with pulmonary hypertension, requiring revision Reports: Congestive heart failure, Coronary artery disease, Hyperlipidemia, Hypertension Reports: Atrial fibrillation Past Surgical History heart cath- stent 2009 Fistula and revision right arm Reports: CABG, Prostatectomy Smoking History Never Smoker Social History Alcohol Use: "Social" Other Social History: , Local resident Ambulatory Status Independent Review of Systems Full Review of Systems Constitutional: Reports: Weakness - generalized Respiratory: Reports: Shortness of breath Cardiovascular: Denies: Chest pain GI: Denies: Abdominal pain Neurologic: Reports: Dizziness, Denies: Headache Complete sys rev & neg: except as marked. Physical Exam Vital Signs Initial VS: Reviewed General/Constitutional: Well-developed, Well-nourished Head / Eyes: Atraumatic, Normocephalic, PERRL ENT: Mucous membranes moist, Conjunctiva normal, No scleral icterus Neck: Supple, Non-tender, Full range of motion Lymphatic: No lymphadenopathy Skin: Warm, Dry, No cyanosis Neurologic: Alert, Oriented, Nonfocal Psychiatric: Mood/affect normal, Behavior normal, Normal thought content Respiratory / Chest: Atraumatic, Breath sounds NL, Breath sounds = bilat, No respiratory distress, No rales, No rhonchi, No wheezing, No retractions Heart Sounds / Murmur: Positive: Systolic murmur present.. (II/) murmur heard best at right upper sternal border Abdomen: Atraumatic, Soft, Non-tender dialysis catheter in RLQ Lower Extremity / Pelvis / MS: Atraumatic, Inspection NL, Full range of motion , No swelling, Non-tender, No edema Interpretation & Diagnostics Lab Results Interpretation ECG Interpretation ECG Interpretation: unchanged from 08/28/16 Inverted T-waves in V1-V5 LVH mildly prolonged QT interval Interpreted by: ED physician Normal ECG Interpretation: Normal sinus rhythm (63) X-Ray Chest Interpretation Chest Xray Interpretation: IMPRESSION: Mild chronic CHF pattern, dialysis catheter in position, suspect mild volume overload. Probable prior CABG. Dictated by: Jasvir Hartley M.D. on 08/29/2016 at 17:02 Approved by: Jasvir Hartley M.D. on 08/29/2016 at 17:03 View: Portable Interpretation / Wet Read by: Interpret - Radiologist Re-Eval/Medical Decision Time of Eval: 17:54 Patient Status: Condition unchanged Re-Evaluation/Progress Note: Pt states he is now feeling "stress in his chest" since the nurse gave him some fluids (1745: Lopressor 5mg infused, 1750: Lopressor 5mg infused) Discussed possibility of starting pt on Lisiniprol. Time of Eval: 18:30 Patient Status: Condition improved Re-Evaluation/Progress Note: Nurse reports that blood pressure is now 150 systolic. Time of Eval: 19:01 Patient Status: Condition unchanged Re-Evaluation/Progress Note: Pt rechecked. He does not feel any further pain or pressure at the moment. Informed pt of high troponin levels and need for admission. Pt understands and agrees with plan. Time of Eval: 19:34 Re-Evaluation/Progress Note: Pt is experiencing chest pressure again. Nurse will apply nitro paste. Consultation : Referral / Consult Name: Paul Dunne MD Consulted With: Hospitalist Call Returned at: 19:05 Technical Sales Support Specialist: Agrees with eval, Agrees with plan Note: Dr. Paul Dunne recommends nitro paced controlling blood pressure and no intervention necessary unless there are more objective findings. Will be happy to consult if needed. Counseled Regarding: Diagnosis, Lab results, Need for admission Discharge & Departure Primary Impression: Chest pressure Additional Impressions: Shortness of breath Elevated troponin Paroxysmal hypertension Disposition: ADMITTED TO HOSPITAL Discharge Condition All VS Reviewed: Yes Condition: Stable Referrals: Heidy Kamara (PCP) Danielito Attestation Portion of this note were transcribed by Aditya Mcrae. I, Dr. Santos, personally performed the history, physical exam, and medical decision-making: I reviewed and confirmed the accuracy for the information in the transcribed note. Signed by: danielito Fox, 08/29/16 1900 copies to: Heidy Kamara Gary R DO Aug 29, 2016 16:16 ADITYA MCRAE Aug 29, 2016 16:46 Creatinine 5.54mg/dL (0.76-1.27) Estimat Glomerular Filtration Rate 11mL/min (>59) Glucose Level 102mg/dL (60-99) Calcium Level 8.4mg/dL (8.5-10.1) Magnesium Level 2.1mg/dL (1.6-2.6) Total Bilirubin 0.8mg/dL (0.0-1.2) Aspartate Amino Transf (AST/SGOT) 47U/L (0-50) Alanine Aminotransferase (ALT/SGPT) 53U/L (0-44) Alkaline Phosphatase 161U/L (25-160) Troponin T 0.743ug/L (0.0-0.011) Total Protein 6.7g/dL (6.4-8.4) Albumin 3.4g/dL (3.4-5.0) ECG Interpretation ECG Interpretation: unchanged from 08/28/16 Inverted T-waves in V1-V5 LVH mildly prolonged QT interval Interpreted by: ED physician Normal ECG Interpretation: Normal sinus rhythm (63) X-Ray Chest Interpretation Chest Xray Interpretation: IMPRESSION: Mild chronic CHF pattern, dialysis catheter in position, suspect mild volume overload. Probable prior CABG. Dictated by: Jasvir Hartley M.D. on 08/29/2016 at 17:02 Approved by: Jasvir Hartley M.D. on 08/29/2016 at 17:03 View: Portable Interpretation / Wet Read by: Interpret - Radiologist Re-Eval/Medical Decision Time of Eval: 17:54 Patient Status: Condition unchanged Re-Evaluation/Progress Note: Pt states he is now feeling "stress in his chest" since the nurse gave him some fluids (1745: Lopressor 5mg infused, 1750: Lopressor 5mg infused) Discussed possibility of starting pt on Lisiniprol. Time of Eval: 18:30 Patient Status: Condition improved Re-Evaluation/Progress Note: Nurse reports that blood pressure is now 150 systolic. Time of Eval: 19:01 Patient Status: Condition unchanged Re-Evaluation/Progress Note: Pt rechecked. He does not feel any further pain or pressure at the moment. Informed pt of high troponin levels and need for admission. Pt understands and agrees with plan. Time of Eval: 19:34 Re-Evaluation/Progress Note: Pt is experiencing chest pressure again. Nurse will apply nitro paste. Consultation : Referral / Consult Name: Paul Dunne MD Consulted With: Hospitalist Call Returned at: 19:05 Technical Sales Support Specialist: Agrees with eval, Agrees with plan Note: Dr. Paul Dunne recommends nitro paced controlling blood pressure and no intervention necessary unless there are more objective findings. Will be happy to consult if needed. Counseled Regarding: Diagnosis, Lab results, Need for admission Discharge & Departure Primary Impression: Chest pressure Additional Impressions: Shortness of breath Elevated troponin Disposition: ADMITTED TO HOSPITAL Discharge Condition All VS Reviewed: Yes Condition: Stable Referrals: Heidy Kamara (PCP) Scribrod Attestation Portion of this note were transcribed by Aditya Mcrae. I, Dr. Santos, personally performed the history, physical exam, and medical decision-making: I reviewed and confirmed the accuracy for the information in the transcribed note. Signed by: danielito Fox, 08/29/16 1900 copies to: Heidy Kamara Gary R DO Aug 29, 2016 16:16 ADITYA MCRAE Aug 29, 2016 16:46
[2016-08-29] MEDS ORDERED: Ondansetron 2 mg/mL 2 mL Inj IV PRN (16:25)
--- NOTE | 2016-08-29 17:04 | DRSVH ---
PROCEDURE: X-RAY CHEST ONE VIEW, PORTABLE ([id number]) INDICATIONS: oth TECHNIQUE: One view of the chest was acquired. COMPARISON: [facility], CR, XR CHEST 1VW (PORTABLE), 08/27/2016, 12:44. FINDINGS: Surgical changes and devices: Double-lumen central venous catheter, prior sternotomy wires, presumed prior CABG. Lungs and pleura: No pleural effusions or pneumothorax. Lungs are mildly edematous. Mediastinum: Mediastinal contours appear normal. Heart size is at the upper limits of normal. Bones and chest wall: No suspicious bony lesions. Overlying soft tissues appear unremarkable. IMPRESSION: Mild chronic CHF pattern, dialysis catheter in position, suspect mild volume overload. Probable prior CABG. Dictated by: Jasvir Hartley M.D. on 08/29/2016 at 17:02 Approved by: Jasvir Hartley M.D. on 08/29/2016 at 17:03
[2016-08-29 17:37] LABS: BASOPHILS % (AUTO) 0.4 % (0-3); EOSINOPHILS % (AUTO) 1.6 % (0-5); MONOCYTES % (AUTO) 10.5 % (4-12); Mean Corpuscular Hemoglobin 32.1 pg (27.0-35.0); Mean Corpuscular Volume 98.4 fL (81-100); NEUTROPHILS % (AUTO) 78.2 % (40-74); Platelet Count 204 bil/L (150-400)
[2016-08-29] MEDS: MeTOProlol 1 mg/mL 5 mL Inj IVPUSH SCH ×3 (17:47→18:10)
[2016-08-29 18:05] LABS: Magnesium 2.1 mg/dL (1.6-2.6)
[2016-08-29] MEDS ORDERED: Nitroglycerin 2% 1 Gm Ointment TOPICAL SCH (19:15)
[2016-08-29] MEDS ORDERED: Alum-Mag Hydrox-Simeth 30 mL Suspension PO PRN (19:25)
[2016-08-29] MEDS ORDERED: Ondansetron 2 mg/mL 2 mL Inj IVPUSH PRN (19:25)
--- NOTE | 2016-08-29 21:20 | NUR ---
Admit Note Pt arrived at 2100. SBA,steady on feet, RA. Alert and oriented.
[2016-08-29] MEDS ORDERED: Polyethylene Glycol (PEG) 17 Gm Powder PO PRN (21:30)
--- NOTE | 2016-08-29 22:16 | PCM.HPMED ---
Subjective Date of Service Aug 29, 2016 Primary Provider: Admitting Physician: Bishop Chaudhari MD Primary Care Physician: Heidy Kamara Attending Physician: iBshop Chaudhari MD Chief Complaint: Recurrent chest pressure with paroxysmal symptomatic hypertension and shortness of breath. History of Present Illness: He was just in the hospital, discharging home yesterday after stenting to the LAD along with atherectomy. When he was discharged his metoprolol dose was decreased from 200 mg twice daily to 100 mg twice day and ELOY inhibitor therapy was recommended to be discussed with his outpatient bmx rider. He says as soon as he got home his blood pressure went up and he began feeling short of breath and chest pressure. He also felt some "dizziness ". He describes systolics above 200. On arrival here his systolic was 182. He was treated with Lopressor, hydralazine and topical nitroglycerin with blood pressures coming down nicely. His troponin reached 0.743 which is about twice as high as it was when he came in with the acute coronary syndrome. This was discussed with the on-call garnett machine operator helper who recommended controlling blood pressure and inpatient monitoring and stated that he would be available for consult if symptoms did not respond. The discharge plan from yesterday is described below 1. Acute coronary syndrome, present on admission. Active. -Elevated troponin and ST depressions seen on initial EKG -Patient underwent cardiac catheterization with coronary angiogram and percutaneous intervention. He received orbital arthrectomy and 2 stents in his LAD. -Continued aspirin 81 mg, clopidogrel 75 mg, and atorvastatin 40 mg at bedtime once daily -Continued home furosemide 80 mg once daily and hydralazine 75 mg 2 times a day -Cardiology consulted and followed. Their time and recommendations were appreciated. -Right femoral access site initially yesterday with small hematoma, which improved today. Ultrasound did not show a pseudoaneurysm. -Metoprolol decreased to 100 mg twice per day. -Patient needs to follow up with Dr. Barragan in 1-2 weeks. 2. End-stage renal disease on peritoneal dialysis, chronic, present on admission. -Nephrology consulted and followed. Their time and recommendations were appreciated. -Peritoneal dialysis received during his hospital stay. -Patient had hypokalemia and was given 40 mEq of potassium chloride this morning. Patient started on 10 mEq of potassium chloride once daily. QTc EKG improved after potassium was administered. -Patient should continue peritoneal dialysis as previously scheduled and follow- up with his primary bmx rider. If his primary bmx rider agrees, we would recommend adding an ELOY inhibitor to his medication regimen. 3. Paroxysmal atrial fibrillation, chronic, present on admission. -Status post ablation -Continued aspirin and decrease metoprolol to 100 mg twice per day today. 4. Hypertension, chronic, present on admission. -Continued medications as above 5. Hyperlipidemia, chronic, present on admission. -Continued medications as above 6. History of high-output heart failure, chronic, present on admission. -Status post atriovenous fistula ligation. -Echocardiogram on 08/27/2016 showed EF 60-65%. -Cardiology consulted and followed. Allergies Coded Allergies: amlodipine (Unverified Allergy, Unknown, UNKNOWN, 11/10/15) codeine (Unverified Allergy, Unknown, unknown, 11/10/15) dronedarone (Unverified Adverse Reaction, Severe, 11/10/15) pt reports that he has never been as sick in his life, severe intolerance to medication hydrocodone bitartrate (Verified Adverse Reaction, Severe, Nausea, 11/10/15) oxycodone HCl (Verified Adverse Reaction, Severe, Nausea, 11/10/15) Home Medications Lopressor 100 mg twice a day Hydralazine 75 mg twice a day Lasix 80 mg daily Plavix 75 mg daily Aspirin 81 mg a day Atorvastatin 40 mg a day Potassium chloride 10 mEq daily Peritoneal dialysis 4 times a day with 2000 mL input each treatment PMH PMH Paroxysmal atrial fibrillation End-stage renal disease on peritoneal dialysis High output heart failure secondary to right right AV fistula History of rheumatic fever with mitral and tricuspid regurgitation Hypertension Dyslipidemia CAD Surgical History Surgical History Three-vessel coronary artery bypass graft Prostatectomy Right partial knee replacement Cardiac ablation for atrial fibrillation Arteriovenous graft fistula and fistula ligation Coronary Stenting and Atherectomy LAD Family History Family History Father had a valve replacement and from an infection. S Social History Hx Alcohol Use: Yes (on wednesday or wednesday cocktails) Hx Substance Use: Yes (marijuana- ingested not smoked) Hx Tobacco Use: No Smoking Status: Never Smoker Additional Information ocial History Occupation: retired homebuilder Hx Alcohol Use: Yes (on wednesday or wednesday cocktails) Hx Substance Use: Yes (marijuana- ingested not smoked) Hx Tobacco Use: No Smoking Status: Never Smoker Living Arrangement: with Family (significant other named Ariella) Exam Vital Signs Vital Sign - Last Date Time Temp Pulse Resp B/P Pulse Ox O2 Delivery O2 Flow Rate FiO2 08/29/16 21:21 36.6 62 20 174/86 96 Room Air 08/29/16 20:25 2 Exam Alert and oriented 3, in no apparent distress. He is quite the customer service representative teller. Pupils are equally round and reactive to light and accommodation. Extraocular muscles are intact. Sclera are pink and nonicteric. JVD is less than 6 cm. No carotid bruits are heard. No lymph nodes are felt head, neck, supraclavicular area. There is no thyromegaly Throat looks normal Heart is regular rate and rhythm without murmur. Lungs are clear to auscultation bilaterally Abdomen is soft, bowel sounds positive, nontender, no organomegaly or masses, with a peritoneal dialysis catheter in the right lower quadrant. Neuro has cranial nerves II through XII tested and intact, no tremor, motor function 4/5 throughout. Skin has no rash or jaundice. Lab and Diagnostics Labs Troponin 0.743 Result Diagram: 08/29/16 1710 08/29/16 1710 X-Rays, CTs and MRIs X-RAY CHEST ONE VIEW, PORTABLE ([id number]) INDICATIONS: oth TECHNIQUE: One view of the chest was acquired. COMPARISON: [facility], CR, XR CHEST 1VW (PORTABLE), 08/27/2016, 12: 44. FINDINGS: Surgical changes and devices: Double-lumen central venous catheter, prior sternotomy wires, presumed prior CABG. Lungs and pleura: No pleural effusions or pneumothorax. Lungs are mildly edematous. Mediastinum: Mediastinal contours appear normal. Heart size is at the upper limits of normal. Bones and chest wall: No suspicious bony lesions. Overlying soft tissues appear unremarkable. IMPRESSION: Mild chronic CHF pattern, dialysis catheter in position, suspect mild volume overload. Probable prior CABG. Dictated by: Jasvir Hartley M.D. on 08/29/2016 Assessment & Plan 1 - Paroxysmal Hypertension -Continue Metoprolol 100 mg BID. Continue Hydralazine and Furosemide. -Add Losartan -Continue topical NTG 2 - Elevated Troponin/CAD -Elevated troponin, much higher than earlier and apparently stable T wave depressions seen on initial EKG -Patient underwent cardiac catheterization with coronary angiogram and percutaneous intervention. He received orbital arthrectomy and 2 stents in his LAD. -Continued aspirin 81 mg, clopidogrel 75 mg, and atorvastatin 40 mg at bedtime once daily -Continued home furosemide 80 mg once daily and hydralazine 75 mg 2 times a day -Cardiology discussed this by phone with Dr. Santos today. Dr. Dunne recommended topical NTG and blood pressure control. He is available for consult if needed. -Metoprolol decreased to 100 mg twice per day. -Add ARB therapy - Losartan today -Trend Troponin in the AM 3 - ESRD/Peritoneal Dialysis -D/W Dr. Farhat luna -Peritoneal dialysis to resume in the AM -K is normal at 3.8 on current 10 meq daily. 4 - Hypothyroidism -Continue Levothyroxine 5 - Atrial Fibrillation Paroxysmal -No signs of recurrence 6 - Dylipidemia -Continue Atorvastatin 7 - Valvular Heart disease - History of rheumatic fever with mitral and tricuspid regurgitation -Echo just done this week. 8 - High output heart failure secondary to right AV fistula --Status post atriovenous fistula ligation. -Echocardiogram on 08/27/2016 showed EF 60-65%. Link Chaudhari MD Resuscitation Status: CPR: Attempt Resuscitation Bishop Chaduhari MD Aug 29, 2016 22:15
--- NOTE | 2016-08-29 22:57 | NUR ---
Dialysis note: PD cycler tx started. 9 hrs, 4 cycles, 2000 ml fill volume and 400 ml last fill, using 2.5% dextrose solution. PD catheter exit site dsg dry and intact. Initial drain clear, no fibrin, no sediments noted. Report given to Macy STONE.
[2016-08-30] VITALS (13 sets, daily range): BP systolic 158–203; BP diastolic 78–99; PULSE 60–66; RESP 18–20; O2SAT 93–95
[2016-08-30 04:43] LABS: APPEARANCE,URINE CLEAR (CLEAR,HAZY); COLOR,URINE YELLOW (YELLOW)
[2016-08-30 04:44] LABS: OCCULT BLOOD,URINE TRACE (NEGATIVE); PH,URINE 7.5 (5.0-8.0); UROBILINOGEN,URINE NORMAL (NORMAL)
[2016-08-30] MEDS ORDERED: Isosorbide Mononitrate 30 mg ER24 Tablet PO ONE (10:15)
[2016-08-30] MEDS ORDERED: LOSA100T3 PO (11:11)
[2016-08-30] MEDS ORDERED: ISOS30TA4 PO (11:12)
--- NOTE | 2016-08-30 12:12 | NUR ---
CARMEN explained and signed. Copy of CARMEN and Medicare self administered medication information given.
--- NOTE | 2016-08-30 13:33 | NUR ---
Social Work-initial assessment/ readiness for discharge: Data:See initial assessment. pt is a 75 y/o male who was dmitted on 08/29/16 for chest pressure per H&P. Pt's insurance is [employer] and PCP is ROGERIO Cole. EMR Reviewed. SW met with pt at bedside to discuss discharge planning, SW role explained. Pt resides at home with his SO in [facility] where he remains independent with ADLs. Pt drives and does not use any DME. Pt has no HH or SNF history. Pt has no terminal makeup operator care or VA benefits. SW discussed DPOA/ advanced directive paperwork with pt, pt states he has completed this, SW encouraged a copy to be brought into the hospital. Pt does his own peritoneal dialysis at home and his Office Machines Sales Representative is Dr. Kline. Pt feels like he has enough help at home and declines any HH or resources.Per RN notes, pt has been up independent in his room. Pt's SO to provide transport home. SW provided phone number and plan on white board in room. No anticipated discharge needs. SW will continue to follow if needs arise. Assessment:Pt who is independent at baseline. Plan:Pt to discharge home when medically stable via POV. No anticipated discharge needs. SW will continue to follow if needs arise. BUDDY Dillon Addendum: 08/30/16 at 1337 by AGNIESZKA FORTE SS Amended: Links added.
--- NOTE | 2016-08-30 13:57 | PCM.PNMED ---
Subjective Date of Service Aug 30, 2016 Subjective pt denied any symptoms overnight slept well BP trends 150-160s today after Losartan started Exam Vital Signs Vital Sign - Last Date Time Temp Pulse Resp B/P Pulse Ox O2 Delivery O2 Flow Rate FiO2 08/30/16 12:25 62 164/82 08/30/16 10:22 20 08/30/16 09:54 37.0 95 Room Air 08/29/16 20:25 2 Intake and Output 08/29/16 08/29/16 08/30/16 Cumulative From/Thru 15:00 23:00 07:00 08/29/16 21:21 - 08/30/16 06:51 Intake Total 200 ml 200 ml Output Total 1002.00 ml 350 ml 1352.00 ml Balance -1002.00 ml -150 ml -1152.00 ml Intake Oral 200 ml 200 ml Output Urine Total 350 ml 350 ml Ultrafiltrate 1002.00 ml 1002.00 ml # Voids 1 1 # Bowel Movements 0 0 Exam NAD, comfortable MMM, no LAD RRR, nl s1 s2 no mrg CTAB, no w,c S, distended, NT,BS+, PD in place warm, no edema IVs and Medications Medications Reviewed: Medications were reviewed in detail Lab and Diagnostics Result Diagram: 08/29/16 1710 08/30/16 0559 X-Rays, CTs and MRIs X-RAY CHEST ONE VIEW, PORTABLE ([id number]) INDICATIONS: oth TECHNIQUE: One view of the chest was acquired. COMPARISON: [facility], CR, XR CHEST 1VW (PORTABLE), 08/27/2016, 12: 44. FINDINGS: Surgical changes and devices: Double-lumen central venous catheter, prior sternotomy wires, presumed prior CABG. Lungs and pleura: No pleural effusions or pneumothorax. Lungs are mildly edematous. Mediastinum: Mediastinal contours appear normal. Heart size is at the upper limits of normal. Bones and chest wall: No suspicious bony lesions. Overlying soft tissues appear unremarkable. IMPRESSION: Mild chronic CHF pattern, dialysis catheter in position, suspect mild volume overload. Probable prior CABG. Dictated by: Jasvir Hartley M.D. on 08/29/2016 Assessment & Plan acute, active hypertensive urgency, POA, BP>200s with SOB, chest discomfort, readmitted < 24hrs. -given uncontrolled BP today, decided to trend BP today with new regimen -keep telemetry, -continue home meds with furosemide 80 mg once daily and hydralazine 75 mg bid , metoprolol 100bid -added Losartan 100mg qd despite limited efficacy on ESRD pt -tried Imdur 30mg ER, pt developed mild ALCALA today, decide whether to continue tomorrow. chronic, stable #Elevated Troponin/CAD, POA, trended up however given s/p PCI, expected to be elevated, increasing trop likely demand ischemic in the setting of hypertensive crisis. -Elevated troponin, much higher than earlier and apparently stable T wave depressions seen on initial EKG -Patient underwent cardiac catheterization with coronary angiogram and percutaneous intervention. He received orbital arthrectomy and 2 stents in his LAD. -Continued aspirin 81 mg, clopidogrel 75 mg, and atorvastatin 40 mg at bedtime once daily -Cardiology discussed this by phone with Dr. Santos today. Dr. Dunne recommended topical NTG and blood pressure control. He is available for consult if needed. -Metoprolol decreased to 100 mg twice per day. -Add ARB therapy - Losartan #ESRD/Peritoneal Dialysis -D/W Dr. Farhat luna -Peritoneal dialysis to resume in the AM # Hypothyroidism -Continue Levothyroxine #Atrial Fibrillation Paroxysmal -No signs of recurrence # Dylipidemia #Continue Atorvastatin #Valvular Heart disease - History of rheumatic fever with mitral and tricuspid regurgitation -Echo just done this week. #High output heart failure secondary to right AV fistula --Status post atriovenous fistula ligation. -Echocardiogram on 08/27/2016 showed EF 60-65%. dispo: likely tomorrow home if BP remains stable, asymptomatic diet: cardiac, renal FUll Code dvt ppx:SCD Resuscitation Status: CPR: Attempt Resuscitation Time spent 35min Ricardo Khan MD Aug 30, 2016 13:57
[2016-08-30 14:47] LABS: BASOPHILS % (AUTO) 0.4 % (0-3); EOSINOPHILS % (AUTO) 2.3 % (0-5); MONOCYTES % (AUTO) 9.8 % (4-12); Mean Corpuscular Hemoglobin 31.3 pg (27.0-35.0); NEUTROPHILS % (AUTO) 76.1 % (40-74); Platelet Count 191 bil/L (150-400)
[2016-08-30 15:23] LABS: Phosphorus 3.2 mg/dL (2.5-4.9)
[2016-08-30 15:26] LABS: TROPONIN T 1.01 ug/L (0.0-0.011)
--- NOTE | 2016-08-30 16:39 | CONS ---
[address] [address] CONSULTATION REPORT PATIENT: GOSIA DEJESUS : 1940 MR#: [id number] ADMIT: 08/29/2016 JOB ID: [id number] DATE OF SERVICE: 08/30/2016 REQUESTING PHYSICIAN: Link Chaudhari MD REASON FOR CONSULTATION: Management of end-stage renal disease. CHIEF COMPLAINT: Elevated blood pressure and chest pressure. PRESENT ILLNESS: This is a 75-year-old, male with significant past medical history of end-stage renal disease on peritoneal dialysis, paroxysmal atrial fibrillation s /p ablation, hypertension, high output heart failure secondary to AV fistula, status post ligation of the fistula, coronary artery disease who presented to the hospital due to uncontrolled hypertension. The patient was just released from the hospital on Wednesday, August 28, 2016. Last hospitalization patient was diagnosed with non-STEMI SC. He underwent cardiac catheterization with coronary angiogram and percutaneous intervention. He received orbital arthrectomy and two stents in LAD. He stated that as soon as he left the hospital, his blood pressure at home has ranged between 180s-210 systolic. He said that after he to metoprolol and hydralazine, his blood pressure went down to 130s, however, it went back up to 180 an hour after. He was complaining of some chest pressure. Yesterday at 3:30, blood pressure was persistently high. He decided to go to the hospital for further investigation. Overnight, his blood pressure has ranged between 110-180s. His current blood pressure was 181/84. Renal was consulted to resume peritoneal dialysis while in the hospital. The patient left the hospital on Wednesday. He did one exchange of peritoneal dialysis. Yesterday, he did two manual exchanges. As I mentioned earlier from the previous consultations, the patient had history of high output heart failure due to AV fistula creation. Later on, it was ligated. He was placed on tunnel catheter in June. PD catheter was placed in July. He has performed continuous ambulatory peritoneal dialysis x 2 weeks, four exchanges per day. The patient is urinating well. However, his serum creatinine has risen after left heart catheterization. I assumed that the IV contrast dropped his residual kidney function. During my visit at this moment, he has no chest pain. No shortness of breath. He is feeling fine and has no lower extremity swelling. PAST MEDICAL HISTORY: 1. End-stage renal disease on peritoneal dialysis. 2. High output heart failure secondary to right AV fistula creation, status post ligation. 3. History of rheumatic fever complicated by moderate mitral and tricuspid regurgitation. 4. Hypertension. 5. Paroxysmal atrial fibrillation. 6. Dyslipidemia. 7. Coronary artery disease status post CABG and stent placement. 8. Prostate cancer, status post prostatectomy. PAST SURGICAL HISTORY: 1. Atrial fibrillation, status post ablation. 2. AV fistula creation and ligation. 3. CABG, coronary stenting and arthrectomy of LAD. 4. Right tunneled catheter placement. FAMILY HISTORY: No kidney disease in the family. SOCIAL HISTORY: He drinks socially. Does not use tobacco. He uses marijuana, he just had not smoked. ALLERGIES: 1. AMLODIPINE. 2. CODEINE. 3. DRONEDARONE. 4. HYDROCODONE. 5. BITARTRATE. 6. OXYCODONE. REVIEW OF SYSTEMS: Fourteen point system was performed. PHYSICAL EXAMINATION: Vitals: Temperature 37.6, pulse 65, respiratory rate 20, blood pressure 181/84, O2 sats 94% on room air. General appearance: Awake, alert, oriented x3. In no acute distress. HEENT: No pallor. No jaundice. No JVD. No lymphadenopathy. No thyroid enlargement. Heart: Regular rhythm. Normal S1, S2. Soft systolic murmur noted. Lungs: Clear to auscultation bilaterally. Abdomen is soft, active bowel sounds. Nontender, nondistended. PD catheter in place. Dry, clean and intact. Extremities: No edema, cyanosis or clubbing of fingers. LABORATORY: Sodium 144, potassium 3.5, chloride 103, bicarb 29, BUN 33, creatinine 5.7, hemoglobin 10.2, platelets 204, and WBC 8.00. ASSESSMENT: 1. End-stage renal disease on peritoneal dialysis. Of note, his serum creatinine has risen significantly after left heart catheterization. I assumed that he had lost some residual kidney function. Nonetheless, he remains urinating well. Since the patient is in the hospital, I will start him on CCPD. I will use 2.5% dextrose, four cycles, 9 hours. I will increase the volume to 2.5 L per each cycle to increase the clearance. 2. Hypertensive urgency. Losartan has been added. The current dose is 100 mg once a day. He also takes Lasix 80 mg once a day, hydralazine and metoprolol. We will continue to monitor his volume status on a daily basis. 3. Recent history of acute coronary syndrome status post left heart catheterization with PCI, arthrectomy and two stent placement in his left anterior descending. 4. Atrial fibrillation status post ablation. 5. History of high output heart failure secondary to arteriovenous fistula, status post ligation. 6. Rheumatic heart fever complicated by mitral regurgitation and tricuspid regurgitation. Thank you for the consultation. We will monitor along with you. PHOENIXD
--- NOTE | 2016-08-30 18:49 | NUR ---
Hypertension: Patients blood pressure went up to 203/99 this evening with 1845 vital signs. His Metoprolol 100mg po and his Hydralazine 75 MG po were given early(2030 dose) Patient was feeling cold. His temp was 36.4 he was wrapped in a warm blanket and started feeling better. Info will be passed on to oncoming shift.
[2016-08-30] MEDS ORDERED: METO100T3 PO (21:50)
[2016-08-31] VITALS (9 sets, daily range): BP systolic 140–189; BP diastolic 75–89; PULSE 63–69; RESP 16–20; O2SAT 94–97
--- NOTE | 2016-08-31 05:06 | NUR ---
HTN/Head Ache Pt very worried at beginning of shift regarding his blood pressure. Pt insisted this RN notify MD and ask to increase his metoprolol. Pt explained that he has recently been taking 200mg of metoprolol at home and that has been controlling his HTN. Md called and notified. Pt given APAP for head ache and pain was fully relieved. Pt later received another dose for a return of the head ache.
[2016-08-31 06:56] LABS: BASOPHILS % (AUTO) 0.4 % (0-3); EOSINOPHILS % (AUTO) 2.9 % (0-5); MONOCYTES % (AUTO) 11.6 % (4-12); Mean Corpuscular Hemoglobin 31.1 pg (27.0-35.0); Mean Corpuscular Volume 99.3 fL (81-100); NEUTROPHILS % (AUTO) 71.3 % (40-74); Platelet Count 199 bil/L (150-400)
[2016-08-31 07:21] LABS: Magnesium 1.9 mg/dL (1.6-2.6); Phosphorus 2.9 mg/dL (2.5-4.9)
[2016-08-31 07:54] LABS: TROPONIN T 1.05 ug/L (0.0-0.011)
--- NOTE | 2016-08-31 10:23 | NUR ---
HTN HOMICIDE DETECTIVE called RN to bedside, pt sts "feeling weird".Pt reports blurred vision, "fuzzy head" aching teeth, and SOB. Denies headache, nausea. Legs feel "restless, like they used too after hemodialysis" B/P = 177/82. MD made aware, coming to bedside. Will continue to monitor.
--- NOTE | 2016-08-31 13:12 | PCM.PNMED ---
Subjective Date of Service Aug 31, 2016 Subjective Patient was seen today in his room and 104 number of issues with him. He states that his systolic blood pressure home usually averages in the 140-150 range. The patient has been consistently elevated with only a few dips down into the normal range. He is doing his CCPD routine as he does not attempt to do at home. I explained to the patient that I cannot go up on his beta daily because his heart rate is already in the 60s. As far as potential sources of his blood pressure he states that he is not in pain, hypoglycemic, dyspneic, anxious, or having difficulty with exertion. I have reviewed his lab work today and would like to add 25 spironolactone at bedtime to see if we can get a response with this. I would also like to have the patient start to perform his normal activities of daily living and have the nurse evaluate him for orthostasis. Exam Vital Signs Vital Sign - Last Date Time Temp Pulse Resp B/P Pulse Ox O2 Delivery O2 Flow Rate FiO2 08/31/16 10:55 67 08/31/16 10:15 36.6 20 179/82 96 Room Air 08/29/16 20:25 2 Intake and Output 08/30/16 08/30/16 08/31/16 Cumulative From/Thru 15:00 23:00 07:00 08/29/16 21:21 - 08/31/16 01:25 Intake Total 600 ml 800 ml Output Total 1234.00 ml 2586.00 ml Balance -634.00 ml -1786.00 ml Intake Oral 600 ml 800 ml Output Urine Total 1200 ml 1550 ml Ultrafiltrate 34.00 ml 1036.00 ml # Voids 1 # Bowel Movements 0 0 Lab and Diagnostics Result Diagram: 08/31/16 0620 08/31/16 0620 X-Rays, CTs and MRIs X-RAY CHEST ONE VIEW, PORTABLE ([id number]) INDICATIONS: oth TECHNIQUE: One view of the chest was acquired. COMPARISON: [facility], CR, XR CHEST 1VW (PORTABLE), 08/27/2016, 12: 44. FINDINGS: Surgical changes and devices: Double-lumen central venous catheter, prior sternotomy wires, presumed prior CABG. Lungs and pleura: No pleural effusions or pneumothorax. Lungs are mildly edematous. Mediastinum: Mediastinal contours appear normal. Heart size is at the upper limits of normal. Bones and chest wall: No suspicious bony lesions. Overlying soft tissues appear unremarkable. IMPRESSION: Mild chronic CHF pattern, dialysis catheter in position, suspect mild volume overload. Probable prior CABG. Dictated by: Jasvir Hartley M.D. on 08/29/2016 Assessment & Plan Impression #1 end-stage renal disease dialysis dependent/CCPD #2 hypertension with hypertensive heart disease and hypertensive nephrosclerosis #3 coronary artery disease status post left heart cath. I will rewrite his CCPD tonight for exchanges of 2.5%. Resuscitation Status: CPR: Attempt Resuscitation Riaz Vasquez DO Aug 31, 2016 13:12
--- NOTE | 2016-08-31 15:36 | NUR ---
Dialysis Note Peritoneal dialysis 9hrs, 2000ml fill volume, 4cycles, 400ml last fill. PD cath exit site cleaned with except covered with gauze and hypafix, no s/s infection. Initial drain 31ml, clear drain fluid.
--- NOTE | 2016-08-31 16:10 | DRSVH ---
[facility] [address] [place] [address] Echocardiogram Report Name: ALDAIR DEJESUS PStudy Date: 08/31/2016 Height: 69 in Hospital Exam Location: [facility] Weight: 218 lb Gender: Male BSA: 2.1 m2 : 1940 Age: 75 yrs BP: 179/82 mmHg Reason For Study: LIGHTHEADED, SHORT OF BREATH Ordering Physician: Performed By: Brandon Mcclure Referring Physician: CHACHO CROUCH Interpretation Summary The ejection fraction is estimated to be 60-65%. The right ventricle is normal in size and function. The left atrium is mildly dilated. There is moderate mitral regurgitation. Compared to the prior echo study, there has been no change in the severity of mitral regurgitation. There is moderate to severe tricuspid regurgitation. The right ventricular systolic pressure is estimated at 65 mmHg assuming a right atrial pressure of 3 mm Hg. Compared to the prior echo exam, there has been no change in the severity of pulmonary hypertension. Procedure: A two-dimensional transthoracic echocardiogram with color flow and Doppler was performed in limited views only. The study quality was technically adequate. Comparison is made with the echocardiogram of 08/27/16. The patient was in normal sinus rhythm during the exam. Left Ventricle: The left ventricle is normal in size. The ejection fraction is estimated to be 60-65%. There are no focal wall motion abnormalities. Right Ventricle: The right ventricle is normal in size and function. Atria: The left atrium is mildly dilated. Right atrial size is normal. The interatrial septum is intact with no evidence for an atrial septal defect. Mitral Valve: The mitral valve is normal in structure and function. There is moderate mitral regurgitation. Compared to the prior echo study, there has been no change in the severity of mitral regurgitation. Aortic Valve: The aortic valve is mildly calcified. The aortic valve opens well. No aortic regurgitation is present. Tricuspid Valve: The tricuspid valve leaflets are thin and pliable. There is moderate to severe tricuspid regurgitation. The right ventricular systolic pressure is estimated at 65 mmHg assuming a right atrial pressure of 3 mm Hg. Compared to the prior echo exam, there has been no change in the severity of pulmonary hypertension. Great Vessels: The aortic root is normal size. The ascending aorta is mildly enlarged. Pericardium/ Pleura There is no pericardial effusion. There is no pleural effusion. MMode/2D Measurements & Calculations LVIDd: 5.0 cm RA long axis asc Aorta LVIDs: 3.2 cm LA A2 area: 22.9 cm Diam: 3.8 cm FS: 36.2 % LA A4 area: 28.3 cm RA area IVSd: 1.3 cm LA length (vol): 6.8 cm LVPWd: 1.1 cm LA vol: 80.9 ml : 22.2 cm LA vol index RA vol: 67.1 ml RA : 31.3 mm2 IVC diam: 2.4 cm LV wu. diameter/BSA LV sys. diameter/BSA RVD1 (basal) RVD2 (mid) (cm/m^2): 2.3 (cm/m^2): 1.5 : 3.3 cm Doppler Measurements & Calculations Ao V2 max MV E max chicho MV E/A: 2.1 TR max chicho : 172.7 cm/sec : 121.4 cm/sec Med Peak E' Chicho : 392.2 cm/sec Ao max PG MV A max chicho TR max PG : 11.9 mmHg : 58.1 cm/sec E/E' med: 36.8 : 61.5 mmHg Ao mean PG MV A dur: 0.09 sec : 6.8 mmHg MV V2 mean Ao V2 mean MR flow rate : 57.1 cm/sec : 124.6 cm/sec MV mean PG Ao V2 VTI: 40.1 cm : 76.1 cm3/sec MR PISA radius MV V2 VTI: 30.7 cm : 0.56 cm MV dec time : 0.17 sec Electronically signed by: Alvarado Groves on Reading Physician:08/31/2016 04:09 PM
--- NOTE | 2016-08-31 17:32 | PCM.PNMED ---
Subjective Date of Service Aug 31, 2016 Subjective complains of continued "dizziness" with standing and associated SOB denies any CP Exam Vital Signs Vital Sign - Last Date Time Temp Pulse Resp B/P Pulse Ox O2 Delivery O2 Flow Rate FiO2 08/31/16 10:55 67 08/31/16 10:15 36.6 20 179/82 96 Room Air 08/29/16 20:25 2 Intake and Output 08/30/16 08/30/16 08/31/16 Cumulative From/Thru 15:00 23:00 07:00 08/29/16 21:21 - 08/31/16 01:25 Intake Total 600 ml 800 ml Output Total 1234.00 ml 2586.00 ml Balance -634.00 ml -1786.00 ml Intake Oral 600 ml 800 ml Output Urine Total 1200 ml 1550 ml Ultrafiltrate 34.00 ml 1036.00 ml # Voids 1 # Bowel Movements 0 0 General: Alert, Oriented X3, Cooperative, No Acute Distress Head: Normal Eyes: Scleral Anicteric Nose: Mucous Membr Moist/[place] Mouth: Mucous Membr Moist/[place] Chest & Lungs: Chest Wall Normal, Clear to auscultation & percussion Cardiovascular: Regular Rate/Rhythm Pulses: NL carotid, radial, femoral, DP, PT Abdomen: Non-tender, Non-distended, Normoactive bowel tones, Soft Extremities: No cyanosis/clubbing/edma bilat Neurological: Grossly Neurologically Intact, Normal Speech IVs and Medications Medications Reviewed: Medications were reviewed in detail Lab and Diagnostics Result Diagram: 08/31/16 0620 08/31/16 0620 X-Rays, CTs and MRIs X-RAY CHEST ONE VIEW, PORTABLE ([id number]) INDICATIONS: oth TECHNIQUE: One view of the chest was acquired. COMPARISON: [facility], CR, XR CHEST 1VW (PORTABLE), 08/27/2016, 12: 44. FINDINGS: Surgical changes and devices: Double-lumen central venous catheter, prior sternotomy wires, presumed prior CABG. Lungs and pleura: No pleural effusions or pneumothorax. Lungs are mildly edematous. Mediastinum: Mediastinal contours appear normal. Heart size is at the upper limits of normal. Bones and chest wall: No suspicious bony lesions. Overlying soft tissues appear unremarkable. IMPRESSION: Mild chronic CHF pattern, dialysis catheter in position, suspect mild volume overload. Probable prior CABG. Dictated by: Jasvir Hartley M.D. 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 When he was discharged his metoprolol dose was decreased from 200 mg twice daily to 100 mg twice day and ELOY inhibitor therapy was recommended to be discussed with his outpatient care director rn. He says as soon as he got home his blood pressure went up and he began feeling short of breath and chest pressure. He also felt some "dizziness ". # Acute hypertensive urgency, present on admission (BP>200s with SOB, chest discomfort) readmitted < 24hrs. - c/w current BP meds - appreciate nephrology consult. will f/u w/ recs - consider further cardiology consult in am - keep telemetry, -Imdur 30mg ER tried earlier but pt developed mild ALCALA # Ongoing "dizziness" and shortness of breath - ? if 2ndry to ongoing hypertension - check Echo. - check D-Dimer - PT consult # Elevated Troponin/CAD, present on admission. - trended up however given s/p PCI, expected to be elevated, increasing trop likely demand ischemic in the setting of hypertensive crisis. - f/u echo - Patient underwent cardiac catheterization with coronary angiogram and percutaneous intervention. He received orbital arthrectomy and 2 stents in his LAD. - Continued aspirin 81 mg, clopidogrel 75 mg, and atorvastatin 40 mg at bedtime once daily - possible cardiology consult in am # ESRD/Peritoneal Dialysis - appreciate nephrology consult. will f/u w/ recs - Peritoneal dialysis to resume # Hypothyroidism - Continue Levothyroxine # Atrial Fibrillation Paroxysmal. 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 - Echocardiogram on 08/27/2016 showed EF 60-65%. Dispo: 2-3 days Resuscitation Status: CPR: Attempt Resuscitation Time spent 35 min David Shabazz Aug 31, 2016 17:32
[2016-09-01] VITALS (11 sets, daily range): BP systolic 134–209; BP diastolic 81–107; PULSE 66–71; RESP 19–20; O2SAT 92–97
--- NOTE | 2016-09-01 05:43 | NUR ---
Critical measure:Blood culture Lab called at 0537: Blood culture 07/08 bottles: Positive cocci, possible strep. Dr. Ivan paged at 0541, aware of the result. Pending response. Addendum: 09/01/16 at 0554 by RYAN GARIBAY RN Trace ordered,waiting med to be sent from pharmacy. Addendum: 09/01/16 at 0610 by RYAN GARIBAY RN 0605:2nd bottle blood culture same as first one: Positive pocci, possible strep. Dr. Ivan paged at 0607, aware of the result.
[2016-09-01] MEDS: cefTRIAXone Inj 2,000 MG in Dextrose 5% Minibag Plus 50 ML IV SCH (06:22)
[2016-09-01 07:16] LABS: INR 1.01 ratio
[2016-09-01 08:20] LABS: TROPONIN T 0.927 ug/L (0.0-0.011)
--- NOTE | 2016-09-01 14:35 | PCM.PNMED ---
Subjective Date of Service Sep 01, 2016 Subjective denies any new issues/complaints. says feeling a little better today Exam Vital Signs Vital Sign - Last Date Time Temp Pulse Resp B/P Pulse Ox O2 Delivery O2 Flow Rate FiO2 09/01/16 10:43 71 09/01/16 10:09 36.6 20 134/107 97 Room Air 08/29/16 20:25 2 Intake and Output 08/31/16 08/31/16 09/01/16 Cumulative From/Thru 15:00 23:00 07:00 08/29/16 21:21 - 09/01/16 06:36 Intake Total 1400 ml 400 ml 2600 ml Output Total 449.00 ml 1450 ml 1675 ml 6160.00 ml Balance -449.00 ml -50 ml -1275 ml -3560.00 ml Intake Oral 1400 ml 400 ml 2600 ml Output Urine Total 1450 ml 1675 ml 4675 ml Ultrafiltrate 449.00 ml 1485.00 ml # Voids 1 # Bowel Movements 0 0 0 Exam General: Alert, Oriented X3, Cooperative, No Acute Distress Head: Normal Eyes: Scleral Anicteric Nose: Mucous Membr Moist/[place] Mouth: Mucous Membr Moist/[place] Chest & Lungs: Chest Wall Normal, Clear to auscultation bilat Cardiovascular: Regular Rate/Rhythm Pulses: NL carotid, radial, femoral, DP, PT Abdomen: Non-tender, Non-distended, Normoactive bowel tones, Soft Extremities: No cyanosis/clubbing/edema bilat Neurological: Grossly Neurologically Intact, Normal Speech IVs and Medications Medications Reviewed: Medications were reviewed in detail Lab and Diagnostics Result Diagram: 08/31/16 0620 09/01/16 0633 X-Rays, CTs and MRIs X-RAY CHEST ONE VIEW, PORTABLE ([id number]) INDICATIONS: oth TECHNIQUE: One view of the chest was acquired. COMPARISON: [facility], CR, XR CHEST 1VW (PORTABLE), 08/27/2016, 12: 44. FINDINGS: Surgical changes and devices: Double-lumen central venous catheter, prior sternotomy wires, presumed prior CABG. Lungs and pleura: No pleural effusions or pneumothorax. Lungs are mildly edematous. Mediastinum: Mediastinal contours appear normal. Heart size is at the upper limits of normal. Bones and chest wall: No suspicious bony lesions. Overlying soft tissues appear unremarkable. IMPRESSION: Mild chronic CHF pattern, dialysis catheter in position, suspect mild volume overload. Probable prior CABG. Dictated by: Jasvir Hartley M.D. 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 When he was discharged his metoprolol dose was decreased from 200 mg twice daily to 100 mg twice day and ELOY inhibitor therapy was recommended to be discussed with his outpatient broadcast news producer. He says as soon as he got home his blood pressure went up and he began feeling short of breath and chest pressure. He also felt some "dizziness ". # Acute hypertensive urgency, present on admission (BP>200s with SOB, chest discomfort) readmitted < 24hrs. improving - c/w current BP meds - appreciate nephrology consult. will f/u w/ recs - keep telemetry, -Imdur 30mg ER tried earlier but pt developed mild ALCALA # Ongoing "dizziness" and shortness of breath - ? if 2ndry to ongoing hypertension - Limited Echo 08/31 without significant change. EF 60-65% - check D-Dimer - PT consult recommends home health PT # Elevated Troponin/CAD, present on admission. - trended up however given s/p PCI, expected to be elevated, increasing trop likely demand ischemic in the setting of hypertensive crisis. - echo unremarkable as noted above - Patient underwent cardiac catheterization with coronary angiogram and percutaneous intervention. He received orbital arthrectomy and 2 stents in his LAD. - Continued aspirin 81 mg, clopidogrel 75 mg, and atorvastatin 40 mg at bedtime once daily # ESRD/Peritoneal Dialysis - appreciate nephrology consult. will f/u w/ recs - Peritoneal dialysis per nephrology recs # Hypothyroidism - Continue Levothyroxine # Atrial Fibrillation Paroxysmal. 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 Dispo: 1-2 days pending improved and stable BP, improved symptoms, and nephrology clearance VTE Mechanical Devices: Intermittant Pneumatic CD Resuscitation Status: CPR: Attempt Resuscitation Time spent 35 min David Shabazz Sep 01, 2016 14:35
[2016-09-01] MEDS ORDERED: hydrALAZINE 20 mg/mL Inj IV ONE (16:40)
--- NOTE | 2016-09-01 17:39 | NUR ---
Case Management: IMM explained to patient at 1724, all questions answered. Signed original placed in the chart, copy given to patient. Joanne Alvarez RN
[2016-09-02 00:05] VITALS: PULSE 63
[2016-09-02 00:55] VITALS: BP 130/76; PULSE 67; RESP 18; O2SAT 96
[2016-09-02 03:30] VITALS: PULSE 62
[2016-09-02 05:38] VITALS: BP 170/84; PULSE 64; RESP 18; O2SAT 97
[2016-09-02] MEDS: cefTRIAXone Inj 2,000 MG in Dextrose 5% Minibag Plus 50 ML IV SCH (06:04)
--- NOTE | 2016-09-02 06:21 | NUR ---
Blood Pressure: P: HTN I: Blood pressure stabilized during the middle of the night to 130/76 after scheduled medications. E: Pt noted at that time that he was not dizzy when getting up OOB. However, blood pressure has elevated this am to 170/84 and pt reports dizziness with getting OOB this am.
--- NOTE | 2016-09-02 06:24 | NUR ---
Peritoneal Dialysis: Peritoneal dialysis went well over the course of the night. No problems arose; no complaints per pt.
[2016-09-02 08:05] VITALS: BP 157/107; PULSE 67; RESP 15; O2SAT 97
[2016-09-02] MEDS ORDERED: Lidocaine 1%-Epi 1:100,000 10 mL Inj SUBQ ONE (09:20)
--- NOTE | 2016-09-02 09:55 | PCM.PNMED ---
Subjective Date of Service Sep 02, 2016 Subjective Patient's blood pressure has had a response to spironolactone however he still is having intermittent fluctuations in his blood pressure. Her rate still is dipping into the 60s and at this point I do not feel that we should increase his beta daily. I would like to increase his spironolactone to 25 twice a day. Otherwise the patient is tolerating his PD exchanges and offers no new complaints. Exam Vital Signs Vital Sign - Last Date Time Temp Pulse Resp B/P Pulse Ox O2 Delivery O2 Flow Rate FiO2 09/02/16 08:05 36.6 67 15 157/107 97 Room Air 08/29/16 20:25 2 Intake and Output 09/01/16 09/01/16 09/02/16 Cumulative From/Thru 15:00 23:00 07:00 08/29/16 21:21 - 09/02/16 06:51 Intake Total 1715 ml 472 ml 4787 ml Output Total 1625 ml 675 ml 8460.00 ml Balance 90 ml -203 ml -3673.00 ml Intake Oral 1600 ml 418 ml 4618 ml IV Total 115 ml 54 ml 169 ml Output Urine Total 1625 ml 675 ml 6975 ml Ultrafiltrate 1485.00 ml # Voids 1 # Bowel Movements 0 0 Exam Neck is supple without adenopathy thyromegaly or jugular venous distention. Lungs are clear to auscultation. Heart is regular rhythmical with a soft systolic murmur. There is a soft S4 noted. Abdomen is soft without any tenderness rebound guarding masses or hepatosplenomegaly. Extremities actually evidence of any clubbing cyanosis or edema. Skin turgor is good. Lab and Diagnostics Result Diagram: 08/31/16 0620 09/01/16 0633 X-Rays, CTs and MRIs X-RAY CHEST ONE VIEW, PORTABLE ([id number]) INDICATIONS: oth TECHNIQUE: One view of the chest was acquired. COMPARISON: [facility], CR, XR CHEST 1VW (PORTABLE), 08/27/2016, 12: 44. FINDINGS: Surgical changes and devices: Double-lumen central venous catheter, prior sternotomy wires, presumed prior CABG. Lungs and pleura: No pleural effusions or pneumothorax. Lungs are mildly edematous. Mediastinum: Mediastinal contours appear normal. Heart size is at the upper limits of normal. Bones and chest wall: No suspicious bony lesions. Overlying soft tissues appear unremarkable. IMPRESSION: Mild chronic CHF pattern, dialysis catheter in position, suspect mild volume overload. Probable prior CABG. Dictated by: Jasvir Hartley M.D. on 08/29/2016 Assessment & Plan Impression #1 end-stage renal disease peritoneal dialysis dependent #2 hypertension with hypertensive heart disease and hypertensive nephrosclerosis Recommendation a boil like to increase his spironolactone to 25 mg twice a day and I will go ahead and remove his tunneled hemodialysis catheter today. From my point of view he can be discharged. I have also instructed the patient to check his blood pressure at home several times a day and discuss this with his caption writer within the next week or so for medication adjustment. VTE Mechanical Devices: Intermittant Pneumatic CD Resuscitation Status: CPR: Attempt Resuscitation Riaz Vasquez DO Sep 02, 2016 09:55
--- NOTE | 2016-09-02 09:59 | PCM.PROC ---
Procedure Note Date of Service: Sep 02, 2016 Pre Procedure Diagnosis: ESRD removal of a tunneled dialysis catheter Post Procedure Diagnosis: ESRD removal of a tunneled dialysis catheter Procedure: Removal of a tunneled dialysis catheter Provider and Oil Furnace Installer: Riaz Abbott D.O. Procedure Details: After informed consent was obtained from the patient the patient was placed with his head at about 30 elevation. He was removed and sutures were also removed. Area was then Prepped and draped in sterile manner. Local anesthesia was obtained via infiltration of 1% Xylocaine around the catheter. Once anesthesia was obtained the area over the tunneled catheter was manipulated to breakup adhesions. The catheter was then next explored with a forceps and blunt dissection was performed to break up any further adhesions. The tip of the catheter was grasped and with firm pressure on the catheter was removed without incident. Pressure was applied at the base of the neck over the insertion site of the dialysis catheter for approximately 10 minutes. Sterile dressing was applied to the exit site and a sandbag was then applied over the neck to assure hemostasis. Patient tolerated the procedure well and there were no apparent complications. Riaz Vasquez DO Sep 02, 2016 09:59
[2016-09-02 10:39] VITALS: PULSE 68
[2016-09-02] MEDS ORDERED: METO100T3 PO (10:39)
[2016-09-02] MEDS ORDERED: SPIR25TA PO (10:39)
--- NOTE | 2016-09-02 10:40 | PCM.DIMED ---
Ricardo Khan MD 08/30/16 1115: Discharge Instructions Date of Service Aug 30, 2016 Dates of Hospitalization Aug 29, 2016 at 20:02 Discharge Diagnosis Discharge Diagnosis Hypertensive urgency Medication Instructions Please add losartan 100mg daily, you can also take [id number] ER daily for additional blood pressure control, chest pressure, Diet Low fat, Low Sodium, Heart Healthy Activity No restrictions Call your provider Shortness of breath, Chest pain Patient Instructions You were hospitalized with symptoms of chest pressure, difficulty of breathing, lightheadedness, likely triggered by your uncontrolled blood pressure. Please note that your blood pressure is better controlled today with new regimen , however, needs further adjustment based on home bp monitoring, David Shabazz 09/02/16 1040: Ricardo Khan MD Aug 30, 2016 11:15 David Shabazz Sep 02, 2016 10:40
--- NOTE | 2016-09-02 10:48 | PCM.DIMED ---
Discharge Instructions Date of Service Sep 02, 2016 Dates of Hospitalization Aug 29, 2016 at 20:02 Discharge Diagnosis Discharge Diagnosis # End-stage renal disease peritoneal dialysis dependent # Hypertension with hypertensive heart disease and hypertensive nephrosclerosis # Acute hypertensive urgency, present on admission (SBP>200s). Resolved # Post removal of Tunneled Hemodialysis Catheter on 09/02/16 # History of coronary artery disease, presumed stable. # Hypothyroidism, chronic. stable. # Atrial Fibrillation Paroxysmal. 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 Diet Low fat, Low Sodium, Heart Healthy Activity No restrictions Call your provider Fever or Chills, Shortness of breath, Bleeding, Chest pain Patient Instructions Seek immediate medical attention if any new or worsening signs or symptoms occur. Follow-up plan 1. Followup with primary care provider in about one week. 2. Followup with nephrology (Dr. Marcelo) in 1-2 weeks. Follow-up Provider: Jasson Marcelo MD Provider: Heidy Kamara Masoud Sep 02, 2016 10:48
--- NOTE | 2016-09-02 12:11 | NUR ---
Discharge Patient discharge to home with all belongings at 1208. Student Nurse explained to patient new medications(metoprolol, losartan, and spironolactone), when next medications are due and discharge instructions. Patient verbalized understanding. Dc'd IV intact. Dc'd telemetry. Vitals stable. Patient left floor on his own two feet accompanied by primary nurse and family with no signs of distress.
--- NOTE | 2016-09-02 13:26 | PCM.PNMED ---
Subjective Date of Service Sep 02, 2016 Subjective Patient continues to have some fluctuation in his blood pressure. She denies any further chest pain, shortness of breath, cough or wheezing. He is tolerating his peritoneal dialysis treatments without significant problems. Exam Vital Signs Vital Sign - Last Date Time Temp Pulse Resp B/P Pulse Ox O2 Delivery O2 Flow Rate FiO2 09/02/16 10:39 68 09/02/16 08:05 36.6 15 157/107 97 Room Air 08/29/16 20:25 2 Intake and Output 09/01/16 09/01/16 09/02/16 Cumulative From/Thru 15:00 23:00 07:00 08/29/16 21:21 - 09/02/16 06:51 Intake Total 1715 ml 472 ml 4787 ml Output Total 1625 ml 675 ml 8460.00 ml Balance 90 ml -203 ml -3673.00 ml Intake Oral 1600 ml 418 ml 4618 ml IV Total 115 ml 54 ml 169 ml Output Urine Total 1625 ml 675 ml 6975 ml Ultrafiltrate 1485.00 ml # Voids 1 # Bowel Movements 0 0 Exam Lungs are clear to auscultation. Heart is regular rhythmical with a soft systolic murmur. Abdomen is soft without tenderness rebound guarding or masses. Skin turgor is good and is no evidence of any rashes. Lab and Diagnostics Result Diagram: 08/31/16 0620 09/01/16 0633 X-Rays, CTs and MRIs X-RAY CHEST ONE VIEW, PORTABLE ([id number]) INDICATIONS: oth TECHNIQUE: One view of the chest was acquired. COMPARISON: [facility], CR, XR CHEST 1VW (PORTABLE), 08/27/2016, 12: 44. FINDINGS: Surgical changes and devices: Double-lumen central venous catheter, prior sternotomy wires, presumed prior CABG. Lungs and pleura: No pleural effusions or pneumothorax. Lungs are mildly edematous. Mediastinum: Mediastinal contours appear normal. Heart size is at the upper limits of normal. Bones and chest wall: No suspicious bony lesions. Overlying soft tissues appear unremarkable. IMPRESSION: Mild chronic CHF pattern, dialysis catheter in position, suspect mild volume overload. Probable prior CABG. Dictated by: Jasvir Hartley M.D. on 08/29/2016 Assessment & Plan Impression #1 end-stage renal disease peritoneal dialysis dependent #2 hypertension with hypertensive heart disease and hypertensive nephrosclerosis RecommendationI wouldl like to increase his spironolactone to 25 mg twice a day and I will go ahead and remove his tunneled hemodialysis catheter today. From my point of view he can be discharged. I have also instructed the patient to check his blood pressure at home several times a day and discuss this with his veterinary milk specialist within the next week or so for medication adjustment. VTE Mechanical Devices: Intermittant Pneumatic CD Resuscitation Status: CPR: Attempt Resuscitation Riaz Vasquez DO Sep 02, 2016 13:26
--- NOTE | 2016-09-02 17:32 | PCM.DC.MED ---
Discharge Summary Date of Service Sep 02, 2016 Dates of Hospitalization Date of Hospital Admission Aug 29, 2016 at 20:02 Date of Discharge: Sep 02, 2016 Providers: Admitting Physician: Bishop Chaudhari MD Primary Care Physician: Heidy Kamara Attending Physician: Bishop Chaudhari MD Diagnosis at Time of Discharge Diagnosis at Time of Discharge # End-stage renal disease peritoneal dialysis dependent # Hypertension with hypertensive heart disease and hypertensive nephrosclerosis # Acute hypertensive urgency, present on admission (SBP>200s). Resolved # Post removal of Tunneled Hemodialysis Catheter on 09/02/16 # History of coronary artery disease, presumed stable. # Hypothyroidism, chronic. stable. # Atrial Fibrillation Paroxysmal. 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 Consultations 1. Nephrology Procedures XRay, CTs & MRIs X-RAY CHEST ONE VIEW, PORTABLE ([id number]) INDICATIONS: oth TECHNIQUE: One view of the chest was acquired. COMPARISON: [facility], , XR CHEST 1VW (PORTABLE), 08/27/2016, 12: 44. FINDINGS: Surgical changes and devices: Double-lumen central venous catheter, prior sternotomy wires, presumed prior CABG. Lungs and pleura: No pleural effusions or pneumothorax. Lungs are mildly edematous. Mediastinum: Mediastinal contours appear normal. Heart size is at the upper limits of normal. Bones and chest wall: No suspicious bony lesions. Overlying soft tissues appear unremarkable. IMPRESSION: Mild chronic CHF pattern, dialysis catheter in position, suspect mild volume overload. Probable prior CABG. Dictated by: Jasvir Hartley M.D. on 08/29/2016 Cardiac Echo Impression Date of Service: 08/31/16 1154 Echocardiogram Report Interpretation Summary The ejection fraction is estimated to be 60-65%. The right ventricle is normal in size and function. The left atrium is mildly dilated. There is moderate mitral regurgitation. Compared to the prior echo study, there has been no change in the severity of mitral regurgitation. There is moderate to severe tricuspid regurgitation. The right ventricular systolic pressure is estimated at 65 mmHg assuming a right atrial pressure of 3 mm Hg. Compared to the prior echo exam, there has been no change in the severity of pulmonary hypertension. Electronically signed by: Alvarado Groves on Reading Physician:08/31/2016 04:09 PM Brief History 75 year old male with history of Paroxysmal atrial fibrillation, End-stage renal disease on peritoneal dialysis, High output heart failure secondary to right right AV fistula, History of rheumatic fever with mitral and tricuspid regurgitation, Hypertension, Dyslipidemia, CAD, was just in the hospital, discharging home day prior to this admission after stenting to the LAD along with atherectomy. When he was discharged his metoprolol dose was decreased from 200 mg twice daily to 100 mg twice day and ELOY inhibitor therapy was recommended to be discussed with his outpatient electrical and instrumentation manager. He says as soon as he got home his blood pressure went up and he began feeling short of breath and chest pressure. He also felt some "dizziness ". Hospital Course # Acute hypertensive urgency, present on admission (BP>200s with SOB, chest discomfort) readmitted < 24hrs. improving - c/w current BP meds - appreciate nephrology consult. will f/u w/ recs # Ongoing "dizziness" and shortness of breath. Resolved - ? if 2ndry to hypertension - Limited Echo 08/31 without significant change. EF 60-65% - PT consult recommends home health PT # Elevated Troponin/CAD, present on admission. - trended up however given s/p PCI, expected to be elevated, increasing trop likely demand ischemic in the setting of hypertensive crisis. - echo unremarkable as noted above - Patient underwent cardiac catheterization with coronary angiogram and percutaneous intervention. He received orbital arthrectomy and 2 stents in his LAD. - Continued aspirin 81 mg, clopidogrel 75 mg, and atorvastatin 40 mg at bedtime once daily # ESRD/Peritoneal Dialysis - appreciate nephrology consult. will f/u w/ recs - Peritoneal dialysis per nephrology recs # Hypothyroidism - Continue Levothyroxine # Atrial Fibrillation Paroxysmal. stable - No signs of recurrence - unable to tolerate anticoagulation per patient due to prior bleed # Dyslipidemia - Continue Atorvastatin #Valvular Heart disease - History of rheumatic fever with mitral and tricuspid regurgitation - limited echo as noted above # High output heart failure secondary to right AV fistula - Status post atriovenous fistula ligation in past by day of d/c lungs CTA bilat. abd soft, nt, nd, +bs Exam Vital Signs (Last) Date Time Temp Pulse Resp B/P Pulse Ox O2 Delivery O2 Flow Rate FiO2 09/02/16 10:39 68 09/02/16 08:05 36.6 15 157/107 97 Room Air 08/29/16 20:25 2 Test 08/30/16 03:59 08/30/16 14:35 08/31/16 06:20 09/01/16 06:33 Urine Color Yellow (YELLOW) Urine Appearance Clear (CLEAR,HAZY) Urine pH 7.5 (5.0-8.0) Urine Specific [place] 1.020 (1.003-1.035) Urine Protein 100mg/dL (NEG,TRACE) Urine Glucose (UA) Negativemg/dL (NEGATIVE) Urine Ketones Negativemg/dL (NEGATIVE) Urine Occult Blood Trace (NEGATIVE) Urine Nitrite Negative (NEGATIVE) Urine Bilirubin Negative (NEGATIVE) Urine Urobilinogen Normalmg/dL (NORMAL) Urine Leukocyte Esterase Negative (NEGATIVE) Urine RBC 0-2/hpf (0-2) Urine WBC 0-5/hpf (0-5) Urine Epithelial Cells Occasional/hpf (NONE-MOD) Urine Crystals None seen (NONE SEEN) Urine Bacteria None/hpf (NONE-FEW) Urine Hyaline Casts None/lpf (NONE) Urine Granular Casts None seen (NONE SEEN) Urine Waxy Casts None seen (NONE SEEN) Urine Red Blood Cell Casts None seen (NONE SEEN) Urine White Blood Cell Casts None seen (NONE SEEN) Urine Mucus None seen (None Seen) Urine Trichomonas None seen (NONE SEEN) Urine Yeast None (NONE SEEN) Urine Culture Reflexed Not indicated Lactic Acid Level 0.9mmol/L (0.4-2.0) Procalcitonin 0.40ng/mL (0.00-0.08) White Blood Count 5.5th/mm3 (3.8-10.1) Red Blood Count 2.96mil/mm3 (4.40-5.80) Hemoglobin 9.2g/dL (13.8-17.2) Hematocrit 29.4% (41.0-50.0) Mean Corpuscular Volume 99.3fL (81-100) Mean Corpuscular Hemoglobin 31.1pg (27.0-35.0) Mean Corpuscular Hemoglobin Concent 31.3% (32.0-37.0) Red Cell Distribution Width 13.6% (12.3-15.4) Platelet Count 199bil/L (150-400) Neutrophils (%) (Auto) 71.3% (40-74) Lymphocytes (%) (Auto) 13.6% (14-46) Monocytes (%) (Auto) 11.6% (4-12) Eosinophils (%) (Auto) 2.9% (0-5) Basophils (%) (Auto) 0.4% (0-3) Phosphorus Level 2.9mg/dL (2.5-4.9) Magnesium Level 1.9mg/dL (1.6-2.6) Total Bilirubin 0.8mg/dL (0.0-1.2) Aspartate Amino Transf (AST/SGOT) 28U/L (0-50) Alanine Aminotransferase (ALT/SGPT) 36U/L (0-44) Alkaline Phosphatase 137U/L (25-160) Total Protein 5.5g/dL (6.4-8.4) Albumin 3.0g/dL (3.4-5.0) Prothrombin Time 10.8sec (8.1-12.5) Prothromb Time International Ratio 1.01ratio Activated Partial Thromboplast Time 27.8sec (22.8-33.0) Sodium Level 141mEq/L (134-144) Potassium Level 3.5mEq/L (3.5-5.2) Chloride Level 102mEq/L (97-108) Carbon Dioxide Level 26mmol/L (18-29) Blood Urea Nitrogen 26mg/dL (8-27) Creatinine 5.01mg/dL (0.76-1.27) Estimat Glomerular Filtration Rate 12mL/min (>59) Glucose Level 96mg/dL (60-99) Calcium Level 8.7mg/dL (8.5-10.1) Troponin T 0.927ug/L (0.0-0.011) Test 09/01/16 15:05 D-Dimer 1.9mg/L (<0.50) Discharge Medications Discharge Medications Aspirin (Aspirin) 81 Mg Tablet 162 MG PO DAILY (Reported) Atorvastatin (Lipitor) 40 Mg Tablet 40 MG PO HS (Reported) Calcium Carbonate (Tums) 500 Mg Tab.chew 1,000 MG PO BID (Reported) Clopidogrel (Clopidogrel) 75 Mg Tablet 75 MG PO DAILY Prescribed by: CHARU STALLWORTH DO Furosemide (Lasix) 80 Mg Tablet 80 MG PO DAILY (Reported) make take 80 if needed Hydralazine (Hydralazine) 50 Mg Tablet 75 MG PO BID (Reported) Losartan Potassium (Cozaar) 100 Mg Tablet 100 MG PO DAILY Prescribed by: NANDA HUYNH MD Metoprolol Tartrate (Metoprolol Tartrate) 100 Mg Tablet 100 MG PO BID Prescribed by: TARIK AUGUST MD Potassium Chloride (Potassium Chloride) 10 Meq Tab.er.prt 10 MEQ PO DAILYWM Prescribed by: CHARU STALLWORTH DO Spironolactone (Aldactone) 25 Mg Tablet 25 MG PO BID Prescribed by: TARIK AUGUST MD As needed Allopurinol (Allopurinol) 100 Mg Tablet 100 MG PO PRN For Pain (Reported) Followup Plan Disposition: Home with Follow-up plan 1. Followup with primary care provider in about one week. 2. Followup with nephrology (Dr. Marcelo) in 1-2 weeks. Discharge Diet: Low fat, Low Sodium, Heart Healthy Discharge Activity: No restrictions Patient Instructions Seek immediate medical attention if any new or worsening signs or symptoms occur. Follow-up Provider: Jasson Marcelo MD Provider: Heidy Kamara Time spent 35 min copies to: Jasson Marcelo MD; Heidy Kamara Masoud Sep 02, 2016 17:32
== END 2016-09-02 12:10 | disposition home or self-care (01) | DRG 304 ==
LOC: SED 16:08 → EDBD 16:08 → MPC 19:59 → UNDOADMOB 19:59 → OBSVTOIN 20:02 → MPC 20:02
PROVIDERS: ADMIT Family Medicine; ATTEND Family Medicine
PROC: 3E1M39Z Irrigation of Peritoneal Cavity using Dialysate, Percutaneous Approach (ICD-10-PCS; principal; 2016-08-29)
PROC: 3E1M39Z Irrigation of Peritoneal Cavity using Dialysate, Percutaneous Approach (ICD-10-PCS; 2016-08-30)
PROC: 3E1M39Z Irrigation of Peritoneal Cavity using Dialysate, Percutaneous Approach (ICD-10-PCS; 2016-08-31)
PROC: 3E1M39Z Irrigation of Peritoneal Cavity using Dialysate, Percutaneous Approach (ICD-10-PCS; 2016-09-01)
DX: I16.0 Hypertensive urgency (principal); N18.6 End stage renal disease; I24.8 Other forms of acute ischemic heart disease; I13.2 Hypertensive heart and chronic kidney disease with heart failure and with stage 5 chronic kidney disease, or end stage renal disease; I50.9 Heart failure, unspecified; Z99.2 Dependence on renal dialysis; Z91.15 Patient's noncompliance with renal dialysis; I25.10 Atherosclerotic heart disease of native coronary artery without angina pectoris; Z95.1 Presence of aortocoronary bypass graft; E78.5 Hyperlipidemia, unspecified; E03.9 Hypothyroidism, unspecified; I48.0 Paroxysmal atrial fibrillation